=== PATIENT | female | born 1965 | race Caucasian/White ===

== ENCOUNTER 2017-11-22 23:05 | Inpatient (IN) | payer BC ==
[2017-11-22] MEDS ORDERED: Lactated Ringers 1,000 ML IV ONE (23:32)
[2017-11-22] MEDS ORDERED: Metoclopramide 10 MG/2 ML SDV IVPUSH ONE (23:32)
[2017-11-22] MEDS ORDERED: HYDROmorphone 0.5 MG/0.5 ML Syringe IVPUSH ONE (23:32)
--- NOTE | 2017-11-22 23:39 | EDM.PDOC ---
ED HPI GENERAL MEDICAL PROBLEM - General Chief Complaint: Abdominal Pain Stated Complaint: ABD PAIN Time Seen by Provider: 11/22/17 23:20 Source of Information: Reports: Patient, RN History Limitations: Reports: No Limitations - History of Present Illness INITIAL COMMENTS - FREE TEXT/NARRATIVE: 52 yo female presents with crampy abdominal pain and vomiting that began early this evening. No fever. No hematemesis. No diarrhea. Pain started RLQ and now is more central. Pain not worse with coughing. Here with . Last BM was this afternoon. Has a hx of constipation. No hx of any abdominal surgeries. Hx of cervical CA. Has not ever had colonoscopy. Has a hx of anemia attributed to menorrhagia(last menses duration was just over a month). Onset: Today Onset Date: 11/22/17 Onset Time: 19:00 Duration: Hour(s):, Recurring Location: Reports: Abdomen Quality: Reports: Other (crampy) Severity: Moderate Improves with: Reports: None Worsens with: Reports: None Context: Reports: Other (unknown) Associated Symptoms: Reports: Nausea/Vomiting. 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) Other OB/BYN History: cervix cancer - Infectious Disease History Infectious Disease History: Reports: Chicken Pox - Past Surgical History Oncologic Surgical History: Reports: Other (See Below) Other Oncologic Surgeries/Procedures: Removed the cancer from the cervix Social & Family History - Tobacco Use Smoking Status *Q: Current Every Day Smoker Years of Tobacco use: 30 Packs/Tins Daily: 1 Second Hand Smoke Exposure: Yes - Caffeine Use Caffeine Use: Reports: Coffee - Recreational Drug Use Recreational Drug Use: No ED ROS GENERAL - Review of Systems Review Of Systems: See Below Constitutional: Reports: No Symptoms HEENT: Reports: No Symptoms Respiratory: Reports: No Symptoms Cardiovascular: Reports: No Symptoms Endocrine: Reports: No Symptoms GI/Abdominal: Reports: Abdominal Pain, Nausea, Vomiting. Denies: Black Stool, Bloody Stool, Constipation, Diarrhea, Decreased Appetite, Distension, Flatus, Hematemesis, Hematochezia, Melena : Reports: No Symptoms Musculoskeletal: Reports: No Symptoms Skin: Reports: No Symptoms Neurological: Reports: No Symptoms Psychiatric: Reports: No Symptoms ED EXAM, GI/ABD - Physical Exam Exam: See Below Exam Limited By: No Limitations General Appearance: Alert, WD/WN, Mild Distress Eyes: Bilateral: Normal Appearance Ears: Normal External Exam, Normal Canal, Hearing Grossly Normal Nose: Normal Inspection, Normal Mucosa, No Blood Throat/Mouth: Normal Inspection, Normal Lips, Normal Oropharynx, Normal Voice, No Airway Compromise Head: Atraumatic, Normocephalic Neck: Normal Inspection, Supple, Non-Tender Respiratory/Chest: No Respiratory Distress, Lungs Clear, Normal Breath Sounds, No Accessory Muscle Use Cardiovascular: Regular Rate, Rhythm, No Edema GI/Abdominal Exam: Soft, Distended (mild distention ), Tender (diffusely), Abnormal Bowel Sounds (increased) Back Exam: Normal Inspection. No: CVA Tenderness (R), CVA Tenderness (L) Extremities: Normal Inspection, Normal Range of Motion, Non-Tender, No Pedal Edema Neurological: Alert, Oriented, CN II-XII Intact, Normal Cognition, No Motor/ Sensory Deficits Psychiatric: Normal Affect, Normal Mood Skin Exam: Warm, Dry, Intact, Normal Color, No Rash Lymphatic: No Adenopathy Course - Vital Signs Last Recorded V/S: Last Vital Signs Temp 35.8 C 11/22/17 23:17 Pulse 55 L 11/22/17 23:17 Resp 14 11/22/17 23:17 BP 127/42 L 11/22/17 23:17 Pulse Ox 100 11/22/17 23:17 - Orders/Labs/Meds Orders: Active Orders 24 hr Category Date Time Status Abdomen 1V Upright [CR] Stat Exams 11/22/17 23:33 Taken Abdomen Pelvis w Cont [CT] Stat Exams 11/23/17 00:07 Taken Labs: Laboratory Tests 11/22/17 11/22/17 Range/Units 23:41 23:41 WBC 12.3 H (4.5-11.0) K/uL RBC 3.91 (3.30-5.50) M/uL Hgb 9.3 L D (12.0-15.0) g/dL Hct 30.1 L (36.0-48.0) % MCV 77 L (80-98) fL MCH 24 L (27-31) pg MCHC 31 L (32-36) % Plt Count 453 H (150-400) K/uL Sodium 134 L (140-148) mmol/L Potassium 3.4 L (3.6-5.2) mmol/L Chloride 98 L (100-108) mmol/L Carbon Dioxide 24 (21-32) mmol/L Anion Gap 15.4 H (5.0-14.0) mmol/L BUN 17 (7-18) mg/dL Creatinine 0.7 (0.6-1.0) mg/dL Est Cr Clr Drug Dosing 91.75 mL/min Estimated GFR (MDRD) > 60 (>60) Glucose 150 H (74-106) mg/dL Calcium 8.8 (8.5-10.1) mg/dL Meds: Medications Discontinued Medications Generic Name Dose Route Start Last Admin Trade Name Freq PRN Reason Stop Dose Admin Hydromorphone HCl 0.5 mg 11/22/17 23:32 11/22/17 23:40 Dilaudid IVPUSH 11/22/17 23:33 0.5 mg ONETIME ONE Administration Lactated Ringer's 1,000 mls @ 1,000 mls/hr 11/22/17 23:32 11/22/17 23:44 Ringers, Lactated IV 11/23/17 00:31 1,000 mls/hr BOLUS ONE Administration Sodium Chloride 70 mls @ 3 mls/sec 11/23/17 00:14 11/23/17 00:25 Normal Saline IV 11/23/17 00:15 3 mls/sec ASDIRECTED STA Administration Iopamidol 96 ml 11/23/17 00:14 11/23/17 00:25 Isovue-300 (61%) IV 11/23/17 00:15 100 ml . DIRECTED STA Administration Metoclopramide HCl 10 mg 11/22/17 23:32 11/22/17 23:39 Reglan IVPUSH 11/22/17 23:33 10 mg ONETIME ONE Administration - Radiology Interpretation Free Text/Narrative:: Upright abdominal K-mqs-mylqaxemz bowel with air-fluid levels, increased stool as well. CT abd/pelvis-Cecal volvulus, large stool Uterus with endometrial prominance with heterogeneity. CT Results Date: 11/23/17 CT Results Time: 01:15 Departure - Departure Time of Disposition: :25 Disposition: Admitted As Inpatient 68 Condition: Fair Clinical Impression: Cecal volvulus Constipation Qualifiers: Constipation type: unspecified constipation type Qualified Code(s): K59.00 - Constipation, unspecified - Discharge Information Referrals: Faheem Fernando MD [Primary Care Provider] - Forms: ED Department Discharge - My Orders Last 24 Hours: My Active Orders 11/22/17 23:33 Abdomen 1V Upright [CR] Stat 11/23/17 00:07 Abdomen Pelvis w Cont [CT] Stat - Assessment/Plan Last 24 Hours: My Active Orders 11/22/17 23:33 Abdomen 1V Upright [CR] Stat 11/23/17 00:07 Abdomen Pelvis w Cont [CT] Stat
[2017-11-23] MEDS ORDERED: Iopamidol 612 MG/ML 100 ML Bottle IV STA (00:14)
[2017-11-23] MEDS: Lactated Ringers 1,000 ML IV SCH ×2 (01:41→09:38)
--- NOTE | 2017-11-23 02:01 | PCM.HP ---
H&P History of Present Illness - General Admit Problem/Dx: Admission Diagnosis/Problem Admission Diagnosis/Problem Cecal volvulus Source of Information: Patient, Family ( Meagan) History Limitations: Reports: No Limitations - History of Present Illness Initial Comments - Free Text/Narative: 52 yo female presents with crampy abdominal pain and vomiting that began early this evening. No fever. No hematemesis. No diarrhea. Pain started RLQ and now is more central. Pain not worse with coughing. Here with . Last BM was this afternoon. Has a hx of constipation. No hx of any abdominal surgeries. Hx of cervical CA. Has not ever had colonoscopy. Has a hx of anemia attributed to menorrhagia(last menses duration was just over a month). Onset: Today Upright abdominal Y-[id number] bowel with air-fluid levels, increased stool as well. CT abd/pelvis-Cecal volvulus, large stool Uterus with endometrial prominance with heterogeneity. CT Results Date: 11/23/17 CT Results Time: 01:15, consulted with Dr. Toni Peterson, plan surgery in am, dilaudid COMB[employer] INFORMATION CENTER OFFICER, anti-emetics, IV fluids, NPO Onset of Symptoms: Reports: Sudden Symptom Onset Date: 11/22/17 Symptom Onset Time: 19:00 Duration of Symptoms: Reports: Getting Worse Location: Reports: Abdomen Quality: Reports: Other (acute nausea, vomiting and abdominal pain) Severity: Severe Improves with: Reports: None Worsens with: Reports: None Associated Symptoms: Reports: Fever/Chills, Loss of Appetite, Nausea/Vomiting Abdomen Pain Score (Numeric/FACES): 8 - Related Data Allergies/Adverse Reactions: Allergies Allergy/AdvReac Type Severity Reaction Status Date / Time No Known Allergies Allergy Verified 11/22/17 23:20 Home Medications: Home Meds NK [No Known Home Meds] 07/24/15 [History] 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) Other OB/BYN History: cervix cancer - Infectious Disease History Infectious Disease History: Reports: Chicken Pox - Past Surgical History Oncologic Surgical History: Reports: Other (See Below) Other Oncologic Surgeries/Procedures: Removed the cancer from the cervix Social & Family History - Tobacco Use Smoking Status *Q: Current Every Day Smoker Years of Tobacco use: 30 Packs/Tins Daily: 1 Second Hand Smoke Exposure: Yes - Caffeine Use Caffeine Use: Reports: Coffee - Recreational Drug Use Recreational Drug Use: No - Living Situation & Occupation Living situation: Reports: Occupation: Employed (lives with Meagan in [place], [place]. blended family of 9 children age 21 yr to 34 yrs. [employer] business.) H&P Review of Systems - Review of Systems: Review Of Systems: See Below General: Reports: Fever, Chills, Malaise, Decreased Appetite HEENT: Reports: Sore Throat Pulmonary: Reports: Other (tobacco use one and half packs per day) Cardiovascular: Reports: No Symptoms Gastrointestinal: Reports: Abdominal Pain, Distension, Nausea, Vomiting, Other ( bm this evening "normal") Genitourinary: Reports: No Symptoms Musculoskeletal: Reports: No Symptoms Skin: Reports: No Symptoms Psychiatric: Reports: No Symptoms Neurological: Reports: No Symptoms Hematologic/Lymphatic: Reports: Anemia (hx of prolonged heavy menses) Immunologic: Reports: No Symptoms Exam - Exam Exam: See Below - Vital Signs Vital Signs: Last Vital Signs Temp 35.8 C 11/22/17 23:17 Pulse 55 L 11/22/17 23:17 Resp 14 11/22/17 23:17 BP 127/42 L 11/22/17 23:17 Pulse Ox 100 11/22/17 23:17 Weight: 64.41 kg - Exam Quality Assessment: DVT Prophylaxis General: Alert, Oriented, Sedated HEENT: PERRLA, Hearing Intact, Mucosa Moist & [place], Nares Patent, Normal Nasal Septum, Posterior Pharynx Clear, Conjunctiva Clear, EOMI, EACs Clear, TMs Clear Neck: Supple, Trachea Midline, 2 Lungs: Clear to Auscultation, Normal Respiratory Effort Cardiovascular: Regular Rate, Regular Rhythm, Normal S1, Normal S2 GI/Abdominal Exam: Distended (marked abdominal distension, generalized pain), Abnormal Bowel Sounds (Female) Exam: Deferred Rectal (Female) Exam: Deferred Back Exam: Normal Inspection, Full Range of Motion Extremities: Normal Inspection, Normal Range of Motion, No Pedal Edema, Normal Capillary Refill Skin: Warm, Dry, Intact Neurological: Cranial Nerves Intact, Reflexes Equal Bilateral Neuro Extensive - Mental Status: Alert, Oriented x3, Normal Mood/Affect, Normal Cognition Neuro Extensive - Motor, Sensory, Reflexes: CN II-XII Intact, Normal Gait, Normal Reflexes Psychiatric: Alert, Normal Affect, Normal Mood - Patient Data Lab Results Last 24 hrs: Laboratory Results - last 24 hr 11/22/17 11/22/17 Range/Units 23:41 23:41 WBC 12.3 H (4.5-11.0) K/uL RBC 3.91 (3.30-5.50) M/uL Hgb 9.3 L D (12.0-15.0) g/dL Hct 30.1 L (36.0-48.0) % MCV 77 L (80-98) fL MCH 24 L (27-31) pg MCHC 31 L (32-36) % Plt Count 453 H (150-400) K/uL Sodium 134 L (140-148) mmol/L Potassium 3.4 L (3.6-5.2) mmol/L Chloride 98 L (100-108) mmol/L Carbon Dioxide 24 (21-32) mmol/L Anion Gap 15.4 H (5.0-14.0) mmol/L BUN 17 (7-18) mg/dL Creatinine 0.7 (0.6-1.0) mg/dL Est Cr Clr Drug Dosing 91.75 mL/min Estimated GFR (MDRD) > 60 (>60) Glucose 150 H (74-106) mg/dL Calcium 8.8 (8.5-10.1) mg/dL Result Diagrams: 11/22/17 23:41 11/22/17 23:41 *Q Meaningful Use (ADM) - VTE *Q VTE Criteria *Q: - Stroke *Q Stroke Criteria *Q: - AMI *Q AMI Criteria *Q: - Problem List (1) Cecal volvulus SNOMED Code(s): 050836433 ICD Code: K56.2 - VOLVULUS Status: Acute Priority: High Current Visit: Yes (2) Abdominal pain SNOMED Code(s): 42630875 ICD Code: R10.9 - UNSPECIFIED ABDOMINAL PAIN Status: Acute Priority: High Current Visit: Yes Problem List Initiated/Reviewed/Updated: Yes Orders Last 24hrs: Active Orders 24 hr Category Date Time Status Patient Status Manage Transfer [TRANSFER] Routine ADT 11/23/17 01:49 Ordered Abdomen 1V Upright [CR] Stat Exams 11/22/17 23:33 Taken Abdomen Pelvis w Cont [CT] Stat Exams 11/23/17 00:07 Taken Lactated Ringers [Ringers, Lactated] 1,000 ml Med 12/24/17 01:45 Active IV ASDIRECTED Resuscitation Status Routine Resus Stat 11/23/17 01:50 Ordered Medication Orders Lactated Ringer's (Ringers, Lactated) 1,000 mls @ 125 mls/hr IV ASDIRECTED [facility] Last Admin: 11/23/17 01:41 Dose: 125 mls/hr Assessment/Plan Comment:: ssessment/Plan Comment:: Assessment and plan - history of present illness 52 yo female presents with crampy abdominal pain and vomiting that began early this evening. No fever. No hematemesis. No diarrhea. Pain started RLQ and now is more central. Pain not worse with coughing. Here with . Last BM was this afternoon. Has a hx of constipation. No hx of any abdominal surgeries. Hx of cervical CA. Has not ever had colonoscopy. Has a hx of anemia attributed to menorrhagia(last menses duration was just over a month). Onset: Today, nausea and vomiting at 7pm Upright abdominal P-kpy-ixnntympn bowel with air-fluid levels, increased stool as well. CT abd/pelvis-Cecal volvulus, large stool Uterus with endometrial prominance with heterogeneity. CT Results Date: 11/23/17 CT Results Time: 01:15, consulted with Dr. 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, anti-emetics , IV fluids, NPO Assessment and plan - Cecal volvulus -Admit to Med-Surg -surgical intervention in am -NPO -Zofran 4 mg IV every 4 hr prn -IV Dilaudid COMBAT INFORMATION CENTER OFFICER -IV fluids; LR at 125ml/hr Maintenance issues - - DVT prophylaxis - SCD - GI prophylaxis - PPI Protonix 40mg IV bid - Nutrition - nothing by mouth - Mckeon catheter - not indicated -Tobacco; Nicotine patch 21mg -consult Spiritual CODE STATUS - FULL Admission justification - This patient will be admitted for inpatient services and is medically appropriate meeting medical necessity for inpatient admission as outlined in my documentation. I reasonably expect the patient will require inpatient services that span a period time over 2 midnights. I reasonably expect this patient to be discharged or transferred within 96 hours [facility]. Disposition - anticipate discharge to home after the hospital stay Primary care physician - Dr. Fernando Hospitalist: Nate Macario M.D. Surgeon; Toni Peterson M.D. Please call Dionicio Rhodes at [phone] with Surgery time.
[2017-11-23] MEDS ORDERED: LORazepam 2 MG/ML MDV IV PRN (02:20)
[2017-11-23] MEDS ORDERED: Naloxone 0.4 MG/ML SDV IVPUSH PRN ×2 (02:20→07:30)
[2017-11-23] MEDS ORDERED: HYDROmorphone/Normal Saline 15 MG/30 ML PCA IV PRN (02:20)
[2017-11-23] MEDS ORDERED: Albuterol 0.083% 2.5 MG/3 ML Neb Soln NEB PRN (02:20)
[2017-11-23] MEDS ORDERED: Pantoprazole 40 MG Vial IV SCH ×2 (02:30→16:30)
[2017-11-23] MEDS ORDERED: Nicotine 21 MG/24 Hr Patch TRDERM ONE ×2 (02:30→20:15)
[2017-11-23] MEDS: Ondansetron 4 MG/2 ML SDV IV PRN ×2 (08:05→17:26)
[2017-11-23] MEDS ORDERED: Propofol 200 MG/20 ML SDV ONE (08:19)
[2017-11-23] MEDS ORDERED: Ondansetron 4 MG/2 ML SDV ONE (08:19)
[2017-11-23] MEDS ORDERED: Dexamethasone 4 MG/ML SDV ONE (08:19)
[2017-11-23] MEDS ORDERED: fentaNYL 100 MCG/2 ML SDV ONE (08:19)
[2017-11-23] MEDS ORDERED: Succinylcholine 200 MG/10 ML MDV ONE (08:19)
[2017-11-23] MEDS ORDERED: Glycopyrrolate 0.2 MG/ML 5 ML MDV ONE (08:19)
[2017-11-23] MEDS ORDERED: Rocuronium 50 MG/5 ML Vial ONE (08:19)
[2017-11-23] MEDS ORDERED: Neostigmine Methylsulfate 1 MG/ML 5 ML Syringe ONE (08:19)
[2017-11-23] MEDS ORDERED: Sodium Chloride 0.9% 10 ML ONE (08:20)
[2017-11-23] MEDS ORDERED: cefOXitin 2 GM in Sodium Chloride 0.9% 50 ML IV ONE (09:00)
[2017-11-23] MEDS ORDERED: Meropenem 500 MG SDV ONE (10:27)
[2017-11-23] MEDS ORDERED: Lactated Ringers 1,000 ML ONE (11:08)
[2017-11-23] MEDS ORDERED: Naloxone 0.4 MG/ML SDV IV PRN (13:05)
[2017-11-23] MEDS ORDERED: diphenhydrAMINE 50 MG/ML SDV IVPUSH PRN (13:05)
[2017-11-23] MEDS ORDERED: Meperidine PF 75 MG/ML Syringe IM PRN (13:09)
[2017-11-23] MEDS: fentaNYL 2,500 MCG in Sodium Chloride 0.9% 200 ML EPIDUR SCH (14:25)
[2017-11-23] MEDS: Dextrose 5%-Lactated Ringers 1,000 ML IV SCH ×2 (15:36→21:10)
[2017-11-23] MEDS: cefOXitin 2 GM in Sodium Chloride 0.9% 50 ML IV SCH ×2 (15:39→21:26)
[2017-11-23] MEDS ORDERED: Benzocaine/Cetylpyridinium/Menthol Lozenge MUCMEM PRN (19:01)
[2017-11-23] MEDS: Pantoprazole 40 MG Vial IV SCH (20:21)
[2017-11-23] MEDS: Scopolamine 1.5 MG Transdermal Patch TOP SCH (21:26)
[2017-11-24] MEDS: Dextrose 5%-Lactated Ringers 1,000 ML IV SCH ×2 (02:46→08:07)
[2017-11-24] MEDS: cefOXitin 2 GM in Sodium Chloride 0.9% 50 ML IV SCH (04:56)
[2017-11-24] MEDS: fentaNYL 2,500 MCG in Sodium Chloride 0.9% 200 ML EPIDUR SCH (05:47)
[2017-11-24] MEDS ORDERED: Nicotine 21 MG/24 Hr Patch TRDERM SCH (09:00)
[2017-11-24] MEDS: Ondansetron 4 MG/2 ML SDV IV PRN (09:26)
[2017-11-24] MEDS: Nicotine 21 MG/24 Hr Patch TRDERM SCH (09:31)
[2017-11-24] MEDS: VERIFY SCOP PATCH TOP SCH (09:32)
[2017-11-24] MEDS: Magnesium Sulfate/Water 2 GM in Premix Bag 1 BAG IV SCH ×3 (09:34→22:20)
--- NOTE | 2017-11-24 16:52 | PN ---
DATE OF SERVICE: 11/24/2017 The patient has been afebrile with stable vital signs. Respiratory status is stable, but she is not using the incentive spirometer to effect. We will have RT assist with that today as well. Otherwise, urine output has been satisfactory, back down the IV rate. The epidural catheter appears to be working satisfactorily as far as the pain goes. We will probably leave that in an extra day, most likely getting that out on Friday. Our plan will be to proceed with delayed primary closure tomorrow along with the TAP block at that time to augment her abdominal pain control. Magnesium is quite low at 1-1.4. We will supplement that over the next 72 hours. Hemoglobin is also low at 8.3. She probably has some degree of chronic anemia. We will recheck that again. We will type and cross and ferritin level in the morning and the plan is to proceed with the delayed primary closure early tomorrow. Toni Peterson MD /[id number]
[2017-11-24] MEDS: Pantoprazole 40 MG Vial IV SCH (22:19)
[2017-11-25] MEDS: fentaNYL 2,500 MCG in Sodium Chloride 0.9% 200 ML EPIDUR SCH ×2 (00:30→21:48)
[2017-11-25] MEDS: Dextrose 5%-Lactated Ringers 1,000 ML IV SCH ×2 (02:13→08:47)
[2017-11-25] MEDS: Magnesium Sulfate/Water 2 GM in Premix Bag 1 BAG IV SCH ×4 (04:03→21:47)
[2017-11-25] MEDS ORDERED: Lidocaine 0.5% 50 ML SDV ONE (06:56)
[2017-11-25] MEDS ORDERED: Meropenem 500 MG SDV ONE (06:56)
[2017-11-25] MEDS ORDERED: Bupivacaine 0.5%/EPINEPHrine 1:200,000 50 ML MDV ONE (06:57)
[2017-11-25] MEDS ORDERED: Lidocaine 1% 50 ML MDV ONE (06:57)
[2017-11-25] MEDS ORDERED: Ropivacaine 32 ML, Dexamethasone 8 MG, EPINEPHrine 0.4 MG, Sodium Chloride 0.9% 45.6 ML NERVRT SCH ×4 (07:15)
[2017-11-25] MEDS ORDERED: Propofol 200 MG/20 ML SDV ONE (07:37)
--- NOTE | 2017-11-25 07:53 | PN ---
DATE OF SERVICE: 11/25/2017 SUBJECTIVE: Jovany is n.p.o. for delayed primary closure, this morning, hemoglobin is 8.3, potassium 3.4, phosphorus is 2.2. She has no questions or concerns. OBJECTIVE: GENERAL: Jovany Palomares is a 52-year-old female. She is alert and orientated. VITAL SIGNS: Her TPR was last checked at 2:05 a.m. and was 100, 78, 16. Blood pressure 118/65. HEENT: Negative. NECK: Supple. HEART: Regular rate and rhythm. LUNGS: Clear. ABDOMEN: Dressings dry and intact. Abdominal binders on. KHURRAM drain 1 and 2 have put out 370 and 280 respectively of a light pink serosanguineous drainage. EXTREMITIES: Without peripheral edema. ASSESSMENT: Right colon resection. Date is 11/23/2017. PLAN: Orders to be written after delayed primary closure and heparin lock. Clary Jimenez PA-C /[id number]
--- NOTE | 2017-11-25 09:18 | CR ---
Gaseous distention of bowel which may be colon and relate to obstruction. Small bowel loops are promi nent. Refer to CT report.
[2017-11-25] MEDS: Nicotine 21 MG/24 Hr Patch TRDERM SCH (09:27)
[2017-11-25] MEDS: VERIFY SCOP PATCH TOP SCH (09:28)
[2017-11-25] MEDS: Ibuprofen 600 MG Tab PO SCH ×3 (09:29→21:47)
[2017-11-25] MEDS: Acetaminophen 500 MG Tab PO SCH ×3 (09:29→21:47)
[2017-11-25] MEDS: Bisacodyl 5 MG Tab PO SCH ×2 (09:29→20:21)
[2017-11-25] MEDS: Metoclopramide 10 MG/2 ML SDV IVPUSH SCH ×3 (09:30→21:47)
[2017-11-25] MEDS: Iron Sucrose Complex 500 MG in Sodium Chloride 0.9% 250 ML IV SCH (10:30)
[2017-11-25] MEDS: Potassium Phosphates 20 MMOLE in Sodium Chloride 0.9% 250 ML IV SCH ×3 (12:21→20:18)
[2017-11-25] MEDS: Ondansetron 4 MG/2 ML SDV IV PRN (18:51)
[2017-11-25] MEDS: Pantoprazole 40 MG Vial IV SCH (20:21)
[2017-11-26] MEDS: Ondansetron 4 MG/2 ML SDV IV PRN (01:04)
[2017-11-26] MEDS: Acetaminophen 500 MG Tab PO SCH ×4 (03:16→21:50)
[2017-11-26] MEDS: Ibuprofen 600 MG Tab PO SCH ×4 (03:16→21:50)
[2017-11-26] MEDS: Metoclopramide 10 MG/2 ML SDV IVPUSH SCH ×4 (03:17→21:50)
[2017-11-26] MEDS: Magnesium Sulfate/Water 2 GM in Premix Bag 1 BAG IV SCH ×4 (03:17→21:51)
[2017-11-26] MEDS: Dextrose 5%-Lactated Ringers 1,000 ML IV SCH ×2 (05:17→15:51)
[2017-11-26] MEDS ORDERED: Naloxone 0.4 MG/ML SDV IVPUSH PRN (08:58)
[2017-11-26] MEDS ORDERED: diphenhydrAMINE 50 MG/ML SDV IVPUSH PRN (08:59)
[2017-11-26] MEDS ORDERED: Naloxone 0.4 MG/ML SDV IV PRN (08:59)
[2017-11-26] MEDS ORDERED: fentaNYL 2,500 MCG in Sodium Chloride 0.9% 200 ML EPIDUR SCH (09:00)
--- NOTE | 2017-11-26 09:24 | PN ---
DATE OF SERVICE: 11/26/2017 HISTORY OF PRESENT ILLNESS: Jovany had a delayed primary closure yesterday. She had one which she thought to be bloody BM, then had a normal BM after that. It was quite loose, but brown in color. She had 2 emesis, the 1st one 400 mL and the 2nd one 500 mL. She felt better immediately after the emesis. Has been on ice chips. Pain is controlled. Continues to have epidural. REVIEW OF SYSTEMS: Remainder of review of systems, negative for any pertinent positives and negatives. OBJECTIVE: GENERAL: Jovany Palomares is a 52-year-old female. VITAL SIGNS: TPR is 99.6, 78, 14, blood pressure is 104/54. HEENT: Negative. NECK: Supple. HEART: Regular rate and rhythm. LUNGS: Clear. ABDOMEN: Dressing is dry and intact. Abdominal binder is on. KHURRAM drains have put out 625. EXTREMITIES: SCDs are on and there is no peripheral edema. ASSESSMENT: 1. Right colectomy 11/23/2017. 2. Delayed primary closure 11/25/2017. PLAN: 1. Check stool for C diff. 2. Check abdominal flat and upright film in the a.m., 11/27/2017 at 0400 hours. 3. Sips of clear liquids, advance slowly as tolerated. 4. We will evaluate p.r.n. or in the a.m. Clary Jimenez PA-C /[id number]
[2017-11-26] MEDS: Nicotine 21 MG/24 Hr Patch TRDERM SCH (09:25)
[2017-11-26] MEDS: Bisacodyl 5 MG Tab PO SCH ×3 (09:25→21:52)
[2017-11-26] MEDS: VERIFY SCOP PATCH TOP SCH (09:27)
[2017-11-26] MEDS: Iron Sucrose Complex 500 MG in Sodium Chloride 0.9% 250 ML IV SCH (11:19)
[2017-11-26] MEDS: Vancomycin 250 MG/5 ML ML Oral Solution PO SCH ×2 (17:23→23:36)
[2017-11-26] MEDS: Pantoprazole 40 MG Vial IV SCH (21:50)
[2017-11-26] MEDS: Scopolamine 1.5 MG Transdermal Patch TOP SCH (21:51)
[2017-11-27] MEDS: Magnesium Sulfate/Water 2 GM in Premix Bag 1 BAG IV SCH (03:33)
[2017-11-27] MEDS: Metoclopramide 10 MG/2 ML SDV IVPUSH SCH ×4 (03:55→22:57)
[2017-11-27] MEDS: Acetaminophen 500 MG Tab PO SCH ×3 (03:55→16:27)
[2017-11-27] MEDS: Ibuprofen 600 MG Tab PO SCH ×3 (03:55→16:24)
[2017-11-27] MEDS: Dextrose 5%-Lactated Ringers 1,000 ML IV SCH ×3 (03:57→23:11)
[2017-11-27] MEDS: Vancomycin 250 MG/5 ML ML Oral Solution PO SCH ×3 (07:25→17:21)
--- NOTE | 2017-11-27 08:25 | PN ---
DATE OF SERVICE: 11/27/2017 SUBJECTIVE: She has had no further vomiting. Her pain is controlled. She did test positive for Clostridium difficile, continues to have some rectal bleeding, had 3 bowel movements yesterday. Oral intake to 540 and urine output 775. KHURRAM drains have put out 165 and 65 respectively. Pain is controlled. REVIEW OF SYSTEMS: Remainder of review of systems negative for any pertinent positives and negatives. OBJECTIVE: GENERAL: Jovany Palomares is a 52-year-old female. She is alert and orientated. VITAL SIGNS: Stable. HEENT: Negative. NECK: Supple. HEART: Regular rate and rhythm. LUNGS: Clear. ABDOMEN: Dressings dry and intact. Abdominal binder is on. KHURRAM drains x2 intact. EXTREMITIES: Without peripheral edema. ASSESSMENT: 1. Right colectomy, 11/23/2017. 2. Delayed primary closure, 11/25/2017. PLAN: 1. Discontinue Mckeon catheter. 2. Regular diet. 3. Good pulmonary toilet. 4. We will evaluate p.r.n. or in a.m. Clary Jimenez PA-C /[id number]
[2017-11-27] MEDS: Ondansetron 4 MG/2 ML SDV IV PRN ×3 (08:44→22:58)
[2017-11-27] MEDS: VERIFY SCOP PATCH TOP SCH (09:47)
[2017-11-27] MEDS: Nicotine 21 MG/24 Hr Patch TRDERM SCH (09:53)
--- NOTE | 2017-11-27 10:16 | CR ---
Abdomen 2V AP Flat Upright HISTORY: post operative ileus FINDINGS: There are multiple dilated small bowel loops with air-fluid levels. Dilated loops of colon are not seen. Findings may represent postoperative ileus. Partial small bowel obstruction is not excl uded. No mass or organomegaly can be seen. Skin jeff are noted midline over the lower abdomen and pelvis. There is mild probable linear atelectasis right lung base. IMPRESSION: Probable postoperative ileus. Partial small bowel obstruction is not entirely excluded. C ontinued follow-up is recommended. Midline skin jeff are noted. Probable mild atelectasis is seen at the right lung base.
[2017-11-27] MEDS: Bisacodyl 5 MG Tab PO SCH (10:29)
[2017-11-27] MEDS ORDERED: Pantoprazole 40 MG Tab.CR PO SCH (16:30)
[2017-11-27] MEDS: LORazepam 2 MG/ML MDV IVPUSH PRN ×2 (17:33→19:52)
[2017-11-27] MEDS ORDERED: metroNIDAZOLE/Normal Saline 500 MG in Premix Bag 1 BAG IV SCH (18:00)
[2017-11-27] MEDS ORDERED: HYDROmorphone/Normal Saline 15 MG/30 ML PCA IV SCH (21:15)
[2017-11-27] MEDS ORDERED: Vancomycin 250 MG/5 ML ML Oral Solution PO SCH (22:00)
[2017-11-28] MEDS: Metoclopramide 10 MG/2 ML SDV IVPUSH SCH ×4 (03:12→22:15)
[2017-11-28] MEDS: Ondansetron 4 MG/2 ML SDV IV PRN ×2 (03:21→18:13)
[2017-11-28] MEDS: metroNIDAZOLE/Normal Saline 500 MG in Premix Bag 1 BAG IV SCH ×6 (05:36→23:52)
--- NOTE | 2017-11-28 08:51 | CR ---
2 view abdomen Comparison: Previous day. There has been interval placement of a nasogastric tube. There continues to be multiple dilated loops of small bowel in the central aspect of the abdomen. No significant distention of the colon is seen. There is no free air. Impression: 1. Continued dilated loops of small bowel. The finding may reflect a small bowel obstruction versus i leus. 2. Interval placement of nasogastric tube.
[2017-11-28] MEDS ORDERED: Vancomycin 250 MG/5 ML ML Oral Solution SCH (09:00)
[2017-11-28] MEDS: Pantoprazole 40 MG Vial IVPUSH SCH (09:36)
[2017-11-28] MEDS: VANCOMYCIN RECTAL SCH ×4 (09:37→22:16)
[2017-11-28] MEDS: SODIUM CHLORIDE 0.9% RECTAL SCH ×4 (09:37→22:16)
[2017-11-28] MEDS: VERIFY SCOP PATCH TOP SCH (09:39)
[2017-11-28] MEDS: Nicotine 21 MG/24 Hr Patch TRDERM SCH (09:39)
[2017-11-28] MEDS: Erythromycin Ethylsuccinate Susp 400 MG/5 ML 100 ML Bottle PO SCH ×3 (09:40→20:49)
--- NOTE | 2017-11-28 10:23 | PN ---
DATE OF SERVICE: 11/28/2017 SUBJECTIVE: Jovany developed a postop ileus. An NG was placed. She had 150 out. She is less nauseated. She had urinary retention. Mckeon catheter was put back in, and she had 600 of urinary retention. She continues to have loose stools with a positive C. diff. Bleeding is coming more from rectal irritation and not from the actual colon, per nursing observation. Oral intake was 440, emesis 500 mL. Mckeon catheter output was 550, with 600 retention. KHURRAM drain, the round drain, put out 5. Stools on the was 3. REVIEW OF SYSTEMS: Remainder of review of systems negative for any pertinent positives and negatives. OBJECTIVE: GENERAL: Jovany Palomares is a 52-year-old female. VITAL SIGNS: TPR is 100.5, 79, 18, and blood pressure 123/58. HEENT: Negative. NECK: Supple. HEART: Regular rate and rhythm. LUNGS: Clear. ABDOMEN: Dressings dry and intact. Abdominal binder is on. EXTREMITIES: SCDs are on. NG is in place as well as Mckeon. ASSESSMENT: 1. Postoperative ileus. 2. Right colectomy, 11/23/2017. 3. Delayed primary closure, 11/25/2017. PLAN: 1. Vancomycin 200 mg in 250 mL saline enema b.i.d. 2. Erythromycin 250 mg liquid through NG q.i.d. with 10 mL water flush after medication. 3. Good pulmonary toilet. 4. We will evaluate p.r.n. or in a.m. Clary Jimenez PA-C /[id number]
[2017-11-28] MEDS: Dextrose 5%-Lactated Ringers 1,000 ML IV SCH ×2 (10:27→22:17)
[2017-11-28] MEDS: LORazepam 2 MG/ML MDV IVPUSH PRN (20:47)
[2017-11-28] MEDS ORDERED: Phenol/Sodium Phenolate Mouthwash 180 ML Bottle PO PRN (21:37)
[2017-11-29] MEDS: Erythromycin Ethylsuccinate Susp 400 MG/5 ML 100 ML Bottle PO SCH ×4 (01:44→22:19)
[2017-11-29] MEDS: Metoclopramide 10 MG/2 ML SDV IVPUSH SCH ×4 (05:00→22:16)
[2017-11-29] MEDS: metroNIDAZOLE/Normal Saline 500 MG in Premix Bag 1 BAG IV SCH ×3 (05:01→17:36)
[2017-11-29] MEDS: Nicotine 21 MG/24 Hr Patch TRDERM SCH (09:03)
[2017-11-29] MEDS: VERIFY SCOP PATCH TOP SCH (09:04)
[2017-11-29] MEDS: Pantoprazole 40 MG Vial IVPUSH SCH (09:04)
[2017-11-29] MEDS: SODIUM CHLORIDE 0.9% RECTAL SCH ×4 (09:45→22:37)
[2017-11-29] MEDS: VANCOMYCIN RECTAL SCH ×4 (09:45→22:37)
[2017-11-29] MEDS: Dextrose 5%-Lactated Ringers 1,000 ML IV SCH (11:50)
[2017-11-29] MEDS: Meperidine 300 MG/30 ML PCA Vial IV PRN (20:35)
[2017-11-29] MEDS: Scopolamine 1.5 MG Transdermal Patch TOP SCH (22:18)
[2017-11-30] MEDS: metroNIDAZOLE/Normal Saline 500 MG in Premix Bag 1 BAG IV SCH ×4 (00:37→18:13)
[2017-11-30] MEDS ORDERED: Iohexol 300 MG/ML 30 ML Bottle ONE (03:00)
[2017-11-30] MEDS: LORazepam 2 MG/ML MDV IVPUSH PRN ×3 (03:00→19:26)
[2017-11-30] MEDS: Erythromycin Ethylsuccinate Susp 400 MG/5 ML 100 ML Bottle PO SCH ×2 (03:05→16:28)
[2017-11-30] MEDS: Dextrose 5%-Lactated Ringers 1,000 ML IV SCH ×2 (03:17→15:49)
[2017-11-30] MEDS: Metoclopramide 10 MG/2 ML SDV IVPUSH SCH ×4 (03:29→21:31)
[2017-11-30] MEDS: Ondansetron 4 MG/2 ML SDV IV PRN ×2 (03:58→12:11)
[2017-11-30] MEDS ORDERED: Iopamidol 612 MG/ML 100 ML Bottle IV PRN (05:38)
[2017-11-30] MEDS ORDERED: Sodium Chloride 0.9% 71 ML IV SCH (05:45)
[2017-11-30] MEDS ORDERED: Sodium Chloride 0.9% 10 ML Syringe FLUSH SCH (05:45)
[2017-11-30] MEDS: Nicotine 21 MG/24 Hr Patch TRDERM SCH (09:33)
[2017-11-30] MEDS: Pantoprazole 40 MG Vial IVPUSH SCH (09:34)
[2017-11-30] MEDS: Magnesium Sulfate/Water 2 GM in Premix Bag 1 BAG IV SCH ×3 (09:37→21:31)
[2017-11-30] MEDS: VANCOMYCIN RECTAL SCH ×6 (09:38→21:31)
[2017-11-30] MEDS: SODIUM CHLORIDE 0.9% RECTAL SCH ×6 (09:38→21:31)
[2017-11-30] MEDS: VERIFY SCOP PATCH TOP SCH (09:38)
[2017-11-30] MEDS: Potassium Acetate 20 MEQ, Lidocaine 1% 2 ML in Sodium Chloride 0.9% 100 ML IV SCH ×2 (09:39→12:11)
[2017-11-30] MEDS: Potassium Phosphates 20 MMOLE, Lidocaine 1% 2 ML in Sodium Chloride 0.9% 150 ML IV SCH ×3 (15:48→21:31)
[2017-12-01] MEDS: metroNIDAZOLE/Normal Saline 500 MG in Premix Bag 1 BAG IV SCH ×4 (00:07→18:36)
[2017-12-01] MEDS: LORazepam 2 MG/ML MDV IVPUSH PRN (04:11)
[2017-12-01] MEDS: Dextrose 5%-Lactated Ringers 1,000 ML IV SCH (04:11)
[2017-12-01] MEDS: Magnesium Sulfate/Water 2 GM in Premix Bag 1 BAG IV SCH ×4 (04:30→21:06)
[2017-12-01] MEDS: Metoclopramide 10 MG/2 ML SDV IVPUSH SCH ×4 (04:30→22:30)
[2017-12-01] MEDS ORDERED: Meropenem 500 MG SDV ONE ×2 (06:34→06:50)
[2017-12-01] MEDS ORDERED: Meropenem 500 MG in Sodium Chloride 0.9% 50 ML IV STA (06:45)
[2017-12-01] MEDS ORDERED: Sodium Chloride 0.9% 50 ML ONE (06:51)
[2017-12-01] MEDS ORDERED: Midazolam 1 MG/ML 2 ML SDV ONE (07:21)
[2017-12-01] MEDS ORDERED: Ketamine 500 MG/5 ML MDV ONE (07:21)
[2017-12-01] MEDS ORDERED: fentaNYL 250 MCG/5 ML SDV ONE ×2 (07:21→08:17)
[2017-12-01] MEDS ORDERED: Dexamethasone 4 MG/ML SDV ONE (07:22)
[2017-12-01] MEDS ORDERED: Propofol 200 MG/20 ML SDV ONE (07:22)
[2017-12-01] MEDS ORDERED: Glycopyrrolate 0.2 MG/ML 5 ML MDV ONE (07:22)
[2017-12-01] MEDS ORDERED: Succinylcholine 200 MG/10 ML MDV ONE (07:22)
[2017-12-01] MEDS ORDERED: Neostigmine Methylsulfate 1 MG/ML 5 ML Syringe ONE (07:22)
[2017-12-01] MEDS ORDERED: Rocuronium 50 MG/5 ML Vial ONE (07:22)
[2017-12-01] MEDS ORDERED: Ondansetron 4 MG/2 ML SDV ONE (07:22)
[2017-12-01] MEDS ORDERED: Ropivacaine 35 ML, Dexamethasone 8 MG, EPINEPHrine 0.4 MG, Sodium Chloride 0.9% 42.6 ML NERVRT SCH ×4 (08:00)
[2017-12-01] MEDS ORDERED: Lactated Ringers 1,000 ML ONE (08:54)
[2017-12-01] MEDS: VERIFY SCOP PATCH TOP SCH (10:34)
[2017-12-01] MEDS: Pantoprazole 40 MG Vial IVPUSH SCH (10:36)
[2017-12-01] MEDS: Nicotine 21 MG/24 Hr Patch TRDERM SCH (10:36)
[2017-12-01] MEDS: VANCOMYCIN RECTAL SCH ×2 (10:39)
[2017-12-01] MEDS: SODIUM CHLORIDE 0.9% RECTAL SCH ×2 (10:39)
[2017-12-01] MEDS ORDERED: Dextrose 5%-Lactated Ringers 1,000 ML IV SCH (14:00)
[2017-12-01] MEDS: 1: AA 5%/Calcium/D20W/Lytes 1,000 ML with MVI, Adult with Vitamin K 10 ML, Chromium/Copp IV SCH ×3 (14:20)
[2017-12-01] MEDS: Vancomycin 250 MG/5 ML ML Oral Solution PO SCH ×2 (16:14→21:05)
[2017-12-01] MEDS: Meperidine 300 MG/30 ML PCA Vial IV PRN (18:56)
[2017-12-01] MEDS: Lactobacillus Rhamnosus GG (Probiotic) Cap PO SCH (21:06)
[2017-12-02] MEDS: metroNIDAZOLE/Normal Saline 500 MG in Premix Bag 1 BAG IV SCH ×4 (00:17→18:06)
[2017-12-02] MEDS ORDERED: Meperidine PF 75 MG/ML Syringe IM ONE (00:41)
[2017-12-02] MEDS ORDERED: hydrOXYzine HCl 100 MG/2 ML SDV IM ONE (00:42)
[2017-12-02] MEDS: 1: AA 5%/Calcium/D20W/Lytes 1,000 ML with MVI, Adult with Vitamin K 10 ML, Chromium/Copp IV SCH ×3 (00:54)
[2017-12-02] MEDS ORDERED: fentaNYL 12 MCG/HR Transdermal Patch TRDERM SCH (01:00)
[2017-12-02] MEDS: Metoclopramide 10 MG/2 ML SDV IVPUSH SCH ×4 (04:06→21:36)
[2017-12-02] MEDS: Magnesium Sulfate/Water 2 GM in Premix Bag 1 BAG IV SCH ×4 (04:06→21:36)
[2017-12-02] MEDS: Vancomycin 250 MG/5 ML ML Oral Solution PO SCH (04:06)
[2017-12-02] MEDS ORDERED: Meperidine PF 75 MG/ML Syringe ONE (04:26)
[2017-12-02] MEDS ORDERED: hydrOXYzine HCl 100 MG/2 ML SDV ONE (04:26)
[2017-12-02] MEDS: Meperidine 300 MG/30 ML PCA Vial IV PRN ×2 (05:52→17:28)
[2017-12-02] MEDS ORDERED: Vancomycin 250 MG/5 ML ML Oral Solution GTUBE SCH (07:00)
[2017-12-02] MEDS ORDERED: 1: AA 5%/Calcium/D15W/Lytes 1,000 ML with MVI, Adult with Vitamin K 10 ML, Chromium/Copp IV SCH ×3 (07:30)
[2017-12-02] MEDS ORDERED: hydrOXYzine HCl 100 MG/2 ML SDV IM PRN (07:34)
[2017-12-02] MEDS ORDERED: [UNRECOGNIZED DRUG - REMARK] TOP SCH (09:00)
[2017-12-02] MEDS ORDERED: [UNRECOGNIZED DRUG - REMARK] TRDERM SCH (09:00)
--- NOTE | 2017-12-02 09:31 | CR ---
Abdomen 2V AP Flat Upright INDICATION: F/U ileus/SBO COMPARISON: CT previous day and abdomen x-ray 11/28/2017 FINDINGS: 3 views. NG tube remains in place. Scattered loops of mildly dilated small bowel with associated air-fluid lev els. No significant interval change. Skin jeff and surgical drain remain in place.
[2017-12-02] MEDS: Nicotine 21 MG/24 Hr Patch TRDERM SCH (09:43)
[2017-12-02] MEDS: VERIFY SCOP PATCH TOP SCH (09:44)
[2017-12-02] MEDS: Lactobacillus Rhamnosus GG (Probiotic) Cap PO SCH ×2 (09:44→20:31)
[2017-12-02] MEDS: Pantoprazole 40 MG Vial IVPUSH SCH (09:44)
--- NOTE | 2017-12-02 09:57 | CR ---
Chest 1V Frontal INDICATION: INSERTION TLSC COMPARISON: None FINDINGS: AP portable chest. Left subclavian central line in place with tip in the right atrium. Heart size normal. No infiltrates or pleural effusions. No pneumothorax seen.
[2017-12-02] MEDS: Vancomycin 250 MG/5 ML ML Oral Solution GTUBE SCH ×3 (10:45→21:36)
[2017-12-02] MEDS: 1: AA 5%/Calcium/D15W/Lytes 1,000 ML with MVI, Adult with Vitamin K 10 ML, Chromium/Copp IV SCH ×6 (10:45→20:30)
--- NOTE | 2017-12-02 10:55 | PN ---
DATE OF SERVICE: 11/30/2017 The patient continues to have some ongoing nausea and some emesis, particularly with erythromycin that seems to be causing quite a bit in the way of cramping. CT scan shows what appears to be more of an obstructive pattern at the ileorectal anastomosis. There was some mesenteric swelling, but there does not appear to be any abnormal blood supply. She continues to have some rectal bleeding, and the CT scan showed some thickening of the rectum, probably related to the Clostridium difficile colitis. The plan at this point will be to check some abdominal x-rays tomorrow morning. If that does not open up, we will probably need to reoperate at that point to try to release the small bowel obstruction and decompress the small bowel, but we will also place a gastrostomy tube and do a proctoscopy at that time to evaluate to how things look in the rectum and placement of a central line to begin some TPN. Her potassium and magnesium are both low, maybe supplemented, and we will tentatively plan to proceed with the surgical procedure tomorrow morning. Toni Peterson MD /[id number]
--- NOTE | 2017-12-02 11:11 | PN ---
DATE OF SERVICE: 11/29/2017 The patient has been afebrile with stable vital signs. She continues to have some frequent loose bowel movements but still has a fair amount out of the NG tube. I think we will obtain a CT scan of the abdomen and pelvis early tomorrow, after giving her some oral contrast perhaps in the range of 3 hours prior to that, to see what can be done in terms of small bowel motility. Otherwise, if things don't open up in that she can resume some oral intake in the next day or 2, we will likely need to get some sort of central line and proceed with some TPN. Otherwise, we will continue to maximize activity and work with pulmonary toilet. We will try discontinuing the Mckeon catheter today and have her get in the shower, after removing the Aquacel dressing. Toni Peterson MD /[id number]
--- NOTE | 2017-12-02 12:55 | PN ---
DATE OF SERVICE: 12/02/2017 The patient has been afebrile with stable vital signs. Pain control was a little bit problematic last evening, but it has improved with increasing the ORDNANCE HANDLER dose, along with adding a fentanyl patch. Clinically, otherwise she appears to be stable, and urine output is good. We will back down on the D5LR to keep open and continue with the TPN. The plan is to proceed with delayed primary closure of abdominal incision tomorrow and will continue with increasing activity and pulmonary toilet. Toni Peterson MD /[id number]
[2017-12-02] MEDS: Scopolamine 1.5 MG Transdermal Patch TOP SCH (21:02)
[2017-12-03] MEDS: metroNIDAZOLE/Normal Saline 500 MG in Premix Bag 1 BAG IV SCH ×4 (00:45→19:00)
[2017-12-03] MEDS: Metoclopramide 10 MG/2 ML SDV IVPUSH SCH ×2 (04:24→10:12)
[2017-12-03] MEDS: Vancomycin 250 MG/5 ML ML Oral Solution GTUBE SCH ×3 (04:24→16:09)
[2017-12-03] MEDS: Magnesium Sulfate/Water 2 GM in Premix Bag 1 BAG IV SCH (04:25)
[2017-12-03] MEDS ORDERED: Meropenem 500 MG SDV ONE (06:48)
[2017-12-03] MEDS ORDERED: Lidocaine 1% with EPINEPHrine 1:100,000 50 ML MDV ONE (06:48)
[2017-12-03] MEDS ORDERED: Bupivacaine 0.5% 50 ML MDV ONE (06:48)
[2017-12-03] MEDS: 1: AA 5%/Calcium/D15W/Lytes 1,000 ML with MVI, Adult with Vitamin K 10 ML, Chromium/Copp IV SCH ×6 (07:07→16:55)
[2017-12-03] MEDS ORDERED: Propofol 200 MG/20 ML SDV ONE (07:11)
[2017-12-03] MEDS ORDERED: fentaNYL 100 MCG/2 ML SDV ONE (07:11)
--- NOTE | 2017-12-03 09:30 | PN ---
DATE OF SERVICE: 12/03/2017 SUBJECTIVE: Jovany is n.p.o. for delayed primary closure. Pain is controlled. She has TPN. REVIEW OF SYSTEMS: Remainder of review of systems negative for any pertinent positives and negatives. OBJECTIVE: GENERAL: Jovany Palomares is a 52-year-old female. VITAL SIGNS: TPR is 97.7, 77, 16; blood pressure 110/59. HEENT: Negative. NECK: Supple. HEART: Regular rate and rhythm. LUNGS: Clear. ABDOMEN: Dressings dry and intact. Abdominal binder is on. EXTREMITIES: Without peripheral edema. ASSESSMENT: 1. Exploratory laparotomy with TAP block, release of volvulus, repair of internal hernia, placement of Interceed mesh, central venous catheter insertion, gastrostomy tube insertion, proctoscopy. Date 12/02/2017. 2. Postoperative ileus. 3. Right colectomy, 11/23/2017. 4. Delayed primary closure, 11/25/2017. PLAN: Orders to be written per Toni Peterson MD, after delayed primary closure. Clary Jimenez PA-C /[id number]
[2017-12-03] MEDS ORDERED: Magnesium Citrate Solution 296 ML Bottle GTUBE ONE (10:00)
[2017-12-03] MEDS: Meperidine 300 MG/30 ML PCA Vial IV PRN (10:01)
[2017-12-03] MEDS: Nicotine 21 MG/24 Hr Patch TRDERM SCH (10:10)
[2017-12-03] MEDS: Lactobacillus Rhamnosus GG (Probiotic) Cap PO SCH (10:11)
[2017-12-03] MEDS: VERIFY SCOP PATCH TOP SCH (10:11)
[2017-12-03] MEDS: Pantoprazole 40 MG Vial IVPUSH SCH (10:12)
[2017-12-03] MEDS: Cyclobenzaprine 10 MG Tab GTUBE PRN ×2 (11:13→19:44)
[2017-12-03] MEDS: Dextrose 5%-Lactated Ringers 1,000 ML IV SCH (11:31)
[2017-12-03] MEDS: Ondansetron 4 MG/2 ML SDV IV PRN ×2 (14:42→19:36)
[2017-12-03] MEDS: LORazepam 2 MG/ML MDV IVPUSH PRN ×3 (15:55→22:49)
[2017-12-03] MEDS ORDERED: Metoclopramide Oral Soln 10 MG/10 ML UD Cup GTUBE SCH (16:00)
[2017-12-04] MEDS: metroNIDAZOLE/Normal Saline 500 MG in Premix Bag 1 BAG IV SCH ×4 (00:54→19:04)
[2017-12-04] MEDS: LORazepam 2 MG/ML MDV IVPUSH PRN ×3 (02:17→08:45)
[2017-12-04] MEDS: 1: AA 5%/Calcium/D15W/Lytes 1,000 ML with MVI, Adult with Vitamin K 10 ML, Chromium/Copp IV SCH ×3 (03:04)
[2017-12-04] MEDS: Ondansetron 4 MG/2 ML SDV IV PRN (05:53)
[2017-12-04] MEDS ORDERED: Central Total Parenteral Nutrition Bag SCH (07:45)
[2017-12-04] MEDS: Nicotine 21 MG/24 Hr Patch TRDERM SCH (09:13)
[2017-12-04] MEDS: Bisacodyl 10 MG Supp RECTAL SCH ×2 (09:13→21:10)
[2017-12-04] MEDS: Pantoprazole 40 MG Vial IVPUSH SCH (09:14)
[2017-12-04] MEDS: VERIFY SCOP PATCH TOP SCH (09:14)
--- NOTE | 2017-12-04 09:37 | PN ---
DATE OF SERVICE: 12/03/2017 The patient has been afebrile with stable vital signs. Oral intake is fairly good with getting in the G-tube. Abdomen is somewhat distended. She has not had any flatus or bowel movement as of yet. No further bleeding has been noted, and she is tolerating the vancomycin via the G-tube. If her electrolytes show improvement, then we will continue present TPN rate and content. Otherwise, she underwent a delayed primary closure of abdominal incision without incident. The inside KHURRAM drain was removed, along with Mckeon catheter, and then otherwise, we will maximize activity and work with pulmonary toilet. Continue with IV Flagyl and vancomycin for the C. difficile infection. Toni Peterson MD /[id number]
[2017-12-04] MEDS: Metoclopramide 10 MG/2 ML SDV IVPUSH SCH ×3 (09:54→21:14)
[2017-12-04] MEDS ORDERED: Vancomycin 250 MG/5 ML ML Oral Solution GTUBE SCH ×2 (10:00)
[2017-12-04] MEDS ORDERED: Vancomycin 1,000 MG SDV PO SCH (10:00)
--- NOTE | 2017-12-04 10:01 | OR ---
DATE OF PROCEDURE: 12/03/2017 PREOPERATIVE DIAGNOSIS: Open abdominal incision. POSTOPERATIVE DIAGNOSIS: Open abdominal incision. OPERATIVE PROCEDURE: Delayed primary closure of open abdominal incision. ANESTHESIA: Local plus IV sedation. INDICATION FOR PROCEDURE: The patient is 48 hours status post open laparotomy with open bowel. The wound was felt to be high risk for a wound infection if a primary closure was undertaken. Given this on Friday, the incision was packed open for a planned delayed primary closure at this time. Potential risks including bleeding and infection were reviewed, and the patient wishes to proceed. DETAILS OF PROCEDURE: The patient was taken to the operating room and placed in a supine position, sitting up somewhat to minimize aspiration risk. The abdominal dressing was taken down. Her incision was inspected and found to be clean. Wound was then prepped and draped, anesthetized with 1% lidocaine mixed with Marcaine and irrigated with meropenem-containing saline solution. A 10-Romansh round Tony-Luna drain was placed through a stab wound inferior to the main incision across the bed of the fascia, and sutured in with a 4-0 Vicryl stitch. The incision which was a long midline incision was then closed with a layer of 3-0 Vicryl stitch deep and a 4-0 Vicryl subdermal stitch, and jeff for the skin. Dressing was applied, and there were no evident complications. Toni Peterson MD /[id number]
--- NOTE | 2017-12-04 11:04 | PN ---
DATE OF SERVICE: 12/04/2017 SUBJECTIVE: Jovany had delayed primary closure yesterday. She came back from the procedure, has had nausea. She has vomited 3 times. G-tube is intact. It flushes well, but it is not draining. She has had no bowel movement. KHURRAM drain in incision is not holding any air. Vital signs have been stable. Temp max 99.5. REVIEW OF SYSTEMS: Remainder of review of systems negative for any pertinent positives and negatives. OBJECTIVE: GENERAL: Jovany Palomares is a 52-year-old female. VITAL SIGNS: TPR is 99.5, 73, 16, and blood pressure 126/78. HEENT: Negative. NECK: Supple. HEART: Regular rate and rhythm. LUNGS: Clear. ABDOMEN: KHURRAM drain is full of air. Abdominal binder is on. EXTREMITIES: Without peripheral edema. ASSESSMENT: 1. Delayed primary closure, 12/03/2017. 2. Exploratory laparotomy with TAP block, release of volvulus, repair of internal hernia, placement of Interceed mesh, central venous catheter insertion, gastrostomy tube insertion, and proctoscopy. Date of surgery, 12/01/2017. 3. Postoperative ileus. 4. Right colectomy, 11/23/2017. 5. Delayed primary closure, 11/25/2017. PLAN: 1. Discontinue KHURRAM drain. 2. N.p.o. with ice chips only. 3. Dulcolax suppository per rectum, one q.12 hours until BM. 4. Check CBC, CMP, mag, and phos in a.m. 5. Continue TPN at same rate and content. 6. We will evaluate p.r.n. or in a.m. Clary Jimenez PA-C /[id number]
--- NOTE | 2017-12-04 11:33 | OR ---
DATE OF PROCEDURE: 11/23/2017 PREOPERATIVE DIAGNOSES: 1. Cecal volvulus. 2. History of severe chronic constipation. POSTOPERATIVE DIAGNOSES: 1. Cecal volvulus through congenital internal hernia. 2. Severe chronic constipation. OPERATIVE PROCEDURE: Exploratory laparotomy with: 1. Reduction of volvulus through internal hernia (74409). 2. Subtotal colectomy (90091). 3. Placement of Interceed mesh to prevent adhesion formation between the viscera and the pelvic abdominal wall (22932). ANESTHESIA: General. INDICATIONS FOR PROCEDURE: A 52-year-old female presenting with a clinical picture of cecal volvulus. The plan is to proceed with an exploratory laparotomy with probable right colectomy. The patient also describes a quite severe chronic constipation. If pathology is identified such that it would be a problem above and beyond the present cecal volvulus, one might consider more extensive resection at this point to avoid need for additional surgery to combat the chronic constipation. Potential risks of the procedure including bleeding, infection, leaks from various GI tract closures, problems with bowel obstruction over time as well as the possibility of cardiopulmonary, septic, or hemorrhagic complications leading to were discussed, and the patient wishes to proceed. DETAILS OF PROCEDURE: The patient was taken to the operating room and placed in a supine position. After general endotracheal anesthesia was induced, a Mckeon catheter was inserted and the abdomen prepped and draped, a nasogastric tube had already been placed. A midline incision was then made and carried down through the skin and subcutaneous tissue. This was from roughly a handsbreadths above the umbilicus and then extended eventually down toward the level of the pubis. As one entered the abdomen, extremely strikingly dilated cecal volvulus was identified. 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 This could not be overtly reduced from this direction at this point, and given this, the bowel was then mobilized upward away from the right lateral peritoneal reflection and initially the distal small bowel was divided with a COLLEEN stapler as was then the transverse colon somewhat to the right of the midline. Especially at this point, I did note that there was a large amount of stool present within the transverse colon, splenic flexure, and ascending colon with these areas being quite distended. Careful palpation of the rectum did not reveal any obvious obstructive findings and this appeared to be more of a chronic functional problem with a large amount of hard stool present in that area consistent with the patient's preoperative history of often going 5 days or so without having a bowel movement. At this point, the omentum was divided away from the transverse colon on the right side and the mesentery between the divided transverse colon and the distal small bowel was divided with a combination of vascular mesenteric loads. This continued up to the point where the cecum passed through the defect. This then allowed mobilization of the small bowel from below and then the transverse colon from above through the defect and the remaining vascular attachments of the cecum were then divided with vascular stapler, and the specimen delivered from the field. At this point as had been intermittently through the procedure, careful identification of the right ureter and duodenum was maintained, so as to minimize injury to those structures. At this point, as discussed earlier, the patient has severe chronic constipation; however, this appeared to be more than just related to the cecal volvulus as there was a large amount of distention and a large amount of very firm stool present within the colon up to the level more or less rectosigmoid junction. Again, the rectum was then carefully palpated and no obstructing masses could be identified. This appeared to be more of a chronic functional probable slow transit constipation. As discussed with the patient preoperatively, we then decided to do a more extensive colon resection as simply hooking this up to the transverse colon at this point probably would result in continued problems with the chronic constipation. Given this, the peritoneal reflection of the left colon was divided and the left colon reflected medially and similarly the splenic flexure was taken down with a combination of Harmonic scalpel and cautery dissection, and at that point, the junction of the rectum and sigmoid colon was the divided with the COLLEEN stapler and the mesentery to the remaining colon proximal to that divided with a combination of vascular mesenteric loads. Care was then taken to avoid injury to the left ureter in this case and that remaining specimens were delivered from the field. At this point, the ileorectal anastomosis was accomplished with 2 internal firings of the COLLEEN mae load hooking this up in a [id number] manner. The common opening was then closed transversely with a COLLEEN purple load. The angle was anastomosed and mesenteric defect was approximated with some 3-0 Vicryl stitch. The mesenteric defect was closed on the left side of the anastomosis down toward the posterior retroperitoneum of the pelvis and lower abdomen with 2-0 silk stitch. At that point, no further problems were noted. The abdomen was irrigated with antibiotic-containing saline solution and a Tony-Luna drain was placed through the stab wound in the right mid abdomen, taken across the area of the right-sided dissection, from there into the pelvis. The ileorectal anastomosis was then reinforced with some fibrin sealant and the midline fascia was then approximated with #2 Vicryl stitch. After this was partially closed and could be elevated, Interceed mesh was then placed from the pelvis in the midline up along the abdominal wall to minimize adhesion formation between the small bowel and the pelvic and abdominal wall structures limiting adhesion formation in that area. The fascial closure was then completed. The skin and subcutaneous tissue were felt to be high risk for a wound infection if a primary closure was undertaken given that these were packed open for a planned delayed primary closure in 48 hours. The patient was taken to the recovery room in satisfactory condition. Toni Peterson MD /[id number]
[2017-12-04] MEDS: 1: AA 5%/Calcium/D15W/Lytes 2,000 ML with MVI, Adult with Vitamin K 10 ML, Chromium/Copp IV SCH ×3 (13:43)
[2017-12-04] MEDS ORDERED: Propofol 200 MG/20 ML SDV ONE (16:11)
[2017-12-04] MEDS ORDERED: Midazolam 1 MG/ML 2 ML SDV ONE (16:11)
[2017-12-04] MEDS ORDERED: fentaNYL 100 MCG/2 ML SDV ONE (16:11)
[2017-12-05] MEDS: metroNIDAZOLE/Normal Saline 500 MG in Premix Bag 1 BAG IV SCH ×5 (00:18→23:17)
[2017-12-05] MEDS: Metoclopramide 10 MG/2 ML SDV IVPUSH SCH ×4 (04:09→21:52)
[2017-12-05] MEDS: Meperidine 300 MG/30 ML PCA Vial IV PRN ×2 (04:56→18:50)
[2017-12-05] MEDS ORDERED: Central Total Parenteral Nutrition Bag SCH (07:30)
--- NOTE | 2017-12-05 08:48 | PN ---
DATE OF SERVICE: 12/05/2017 SUBJECTIVE: Jovany started having bowel movements. Vital signs have been afebrile. Her oral intake is ice chips only. Gastrostomy tube was manipulated and opened. She had an output of 250. She has had no further emesis. States that she is feeling much better today. TPN continues to be infused. OBJECTIVE: GENERAL: Jovany Palomares is a 52-year-old female. She is alert and oriented. VITAL SIGNS: TPR is 98.4, 84, 18. Blood pressure 134/66. HEENT: Negative. NECK: Supple. HEART: Regular rate and rhythm. LUNGS: Clear. ABDOMEN: Dressings dry and intact. Abdominal binder is on. Gastrostomy tube in place. EXTREMITIES: Without peripheral edema. SCDs are on. ASSESSMENT: 1. Postoperative ileus. 2. Delayed primary closure, 12/03/2017. 3. Exploratory laparotomy with tap block release of volvulus repair of internal hernia, placement of Interceed mesh, central vein catheter insertion, gastrostomy tube insertion, and proctoscopy. Date of surgery, 12/01/2017. 4. Right colectomy 11/23/2017. 5. Delayed primary closure, 11/25/2017. PLAN: 1. Continue TPN, same rate and content. 2. No lipids indicated for this patient, which would increase infection rate. 3. Check CBC, CMP, and mag phos in a.m. 4. Discontinue Dulcolax suppositories. 5. Discontinue Mckeon catheter, 12/06/2017 at 0600 hours. 6. Good pulmonary toilet. 7. To maintain on ice chips only for at least 3 days. 8. We will evaluate p.r.n. or in a.m. Clary Jimenez PA-C /[id number]
[2017-12-05] MEDS: Nicotine 21 MG/24 Hr Patch TRDERM SCH (08:56)
[2017-12-05] MEDS: Pantoprazole 40 MG Vial IVPUSH SCH (08:57)
[2017-12-05] MEDS: VERIFY SCOP PATCH TOP SCH (08:57)
[2017-12-05] MEDS: 1: AA 5%/Calcium/D15W/Lytes 2,000 ML with MVI, Adult with Vitamin K 10 ML, Chromium/Copp IV SCH ×3 (10:51)
[2017-12-05] MEDS: Dextrose 5%-Lactated Ringers 1,000 ML IV SCH (10:51)
[2017-12-05] MEDS: Cyclobenzaprine 10 MG Tab GTUBE PRN (10:55)
[2017-12-05] MEDS ORDERED: Propofol 200 MG/20 ML SDV ONE (11:02)
[2017-12-05] MEDS: Scopolamine 1.5 MG Transdermal Patch TOP SCH (21:53)
[2017-12-06] MEDS: Metoclopramide 10 MG/2 ML SDV IVPUSH SCH ×4 (04:38→21:01)
[2017-12-06] MEDS: metroNIDAZOLE/Normal Saline 500 MG in Premix Bag 1 BAG IV SCH ×3 (05:02→17:39)
[2017-12-06] MEDS ORDERED: 1: AA 5%/Calcium/D15W/Lytes 1,000 ML with MVI, Adult with Vitamin K 10 ML, Chromium/Copp IV SCH ×3 (06:07)
[2017-12-06] MEDS: Pantoprazole 40 MG Vial IVPUSH SCH (08:31)
[2017-12-06] MEDS: Nicotine 21 MG/24 Hr Patch TRDERM SCH (08:31)
[2017-12-06] MEDS ORDERED: Central Total Parenteral Nutrition Bag SCH (08:45)
[2017-12-06] MEDS ORDERED: Furosemide 20 MG Tab PO ONE (09:00)
[2017-12-06] MEDS: VERIFY SCOP PATCH TOP SCH (10:17)
[2017-12-06] MEDS: Magnesium Sulfate/Water 2 GM in Premix Bag 1 BAG IV SCH ×3 (10:18→21:01)
--- NOTE | 2017-12-06 10:28 | PN ---
DATE OF SERVICE: 12/06/2017 SUBJECTIVE: Jovany has been tolerating sips of clear liquids. Oral intake 240. She had one brief episode of nausea when she got up to go to the bathroom, has 2+ edema in her lower extremities. Reported some burning pain across her lower abdomen. G-tube put out 100 mL of a light pink drainage. Remains to be afebrile. States is feeling better. REVIEW OF SYSTEMS: Remainder of review of systems negative for any pertinent positives and negatives. OBJECTIVE: GENERAL: Jovany Palomares is a 52-year-old female. VITAL SIGNS: TPR 98.2, 76, 18. Blood pressure 127/75. HEENT: Negative. NECK: Supple. HEART: Regular rate and rhythm. LUNGS: Clear. ABDOMEN: Aquacel dressing dry and intact. Abdominal binder is on. EXTREMITIES: Reveal peripheral edema, nonpitting. There is no calf tenderness. ASSESSMENT: 1. Postoperative ileus, resolving. 2. Delayed primary closure, 12/03/2017. 3. Exploratory laparotomy, tap block release of volvulus, repair of internal hernia, placement of Interceed mesh, central vein catheter insertion, gastrostomy tube insertion, and proctoscopy. Date of operation, 12/01/2017. 4. Right colectomy, 11/23/2017. 5. Delayed primary closure, 11/25/2017. 6. TPN nutrition. PLAN: 1. Clear liquid diet, tray line. 2. May shower. 3. Check CBC, CMP, and phos in a.m. 4. Albumin 50 g IV for 3 days. Continue same TPN rate and content. 5. Lasix 10 mg 1 time today. 6. Cyclobenzaprine 10 mg p.o. p.r.n. muscle spasms. 7. Discontinue Flexeril to be given through PEG tube. 8. Magnesium sulfate 2 g IV q.6 hours x72 hours. 9. We will evaluate p.r.n. or in a.m. Clary Jimenez PA-C /[id number]
[2017-12-06] MEDS: Meperidine 300 MG/30 ML PCA Vial IV PRN (10:34)
[2017-12-06] MEDS: 1: AA 5%/Calcium/D15W/Lytes 2,000 ML with MVI, Adult with Vitamin K 10 ML, Chromium/Copp IV SCH ×3 (15:42)
[2017-12-07] MEDS: metroNIDAZOLE/Normal Saline 500 MG in Premix Bag 1 BAG IV SCH ×4 (00:49→17:22)
[2017-12-07] MEDS: Metoclopramide 10 MG/2 ML SDV IVPUSH SCH ×4 (03:04→22:06)
[2017-12-07] MEDS: Magnesium Sulfate/Water 2 GM in Premix Bag 1 BAG IV SCH ×4 (03:04→22:06)
[2017-12-07] MEDS: Meperidine 300 MG/30 ML PCA Vial IV PRN (03:28)
[2017-12-07] MEDS ORDERED: Central Total Parenteral Nutrition Bag SCH (08:15)
[2017-12-07] MEDS: Nicotine 21 MG/24 Hr Patch TRDERM SCH (09:23)
[2017-12-07] MEDS: VERIFY SCOP PATCH TOP SCH (09:24)
[2017-12-07] MEDS: Pantoprazole 40 MG Vial IVPUSH SCH (09:24)
--- NOTE | 2017-12-07 11:10 | PN ---
DATE OF SERVICE: 12/07/2017 SUBJECTIVE: Jovany states she is feeling good. She is on a clear liquid diet, has had 2300 in, one bowel movement. Gastrostomy tube has put out 600 mL. She has been up ambulating. Pain is controlled. States that she is feeling good. TPN is running without any difficulty. OBJECTIVE: GENERAL: Jovany Palomares is a 52-year-old female. She is sitting up in the chair. Color has improved. She is alert, oriented, talkative. VITAL SIGNS: TPR 97.7, 77, 18. Blood pressure 117/65. HEENT: Negative. NECK: Supple. HEART: Regular rate and rhythm. LUNGS: Clear. ABDOMEN: Dressings dry and intact. Abdominal binder is on. EXTREMITIES: With trace peripheral edema. ASSESSMENT: 1. Postoperative ileus, resolving. 2. Delayed primary closure, 12/03/2017. 3. Exploratory laparotomy with tap block, release of volvulus, repair of internal hernia, placement of Interceed mesh, central vein catheter insertion, gastrostomy tube insertion, and proctoscopy. Date of operation, 12/01/2017. 4. Right colectomy, 11/23/2017. 5. Delayed primary closure, 11/25/2017. 6. TPN therapy. PLAN: 1. Continue TPN same rate and content. 2. Clamp PEG tube or put clamp gastrostomy tube 5 hours, unclamp 1 hour, then unclamp p.r.n. any gas, abdominal pain, or bloating. 3. Check CBC, CMP, and phos in a.m. 4. Continue with Flagyl on day #9 for C. diff. 5. Good pulmonary toilet. 6. We will evaluate p.r.n. or in a.m. Clary Jimenez PA-C /[id number]
[2017-12-07] MEDS: 1: AA 5%/Calcium/D15W/Lytes 2,000 ML with MVI, Adult with Vitamin K 10 ML, Chromium/Copp IV SCH ×3 (15:03)
[2017-12-07] MEDS ORDERED: 1: AA 5%/Calcium/D15W/Lytes 2,000 ML with MVI, Adult with Vitamin K 10 ML, Chromium/Copp IV SCH ×3 (15:15)
[2017-12-07] MEDS: Cyclobenzaprine 10 MG Tab PO PRN (22:13)
[2017-12-08] MEDS: metroNIDAZOLE/Normal Saline 500 MG in Premix Bag 1 BAG IV SCH ×2 (00:02→06:00)
[2017-12-08] MEDS: Magnesium Sulfate/Water 2 GM in Premix Bag 1 BAG IV SCH ×4 (03:25→21:15)
[2017-12-08] MEDS: Metoclopramide 10 MG/2 ML SDV IVPUSH SCH ×4 (03:25→21:09)
[2017-12-08] MEDS: Dextrose 5%-Lactated Ringers 1,000 ML IV SCH (06:00)
[2017-12-08] MEDS ORDERED: Acetaminophen 325 MG Tab PO PRN (07:38)
[2017-12-08] MEDS ORDERED: Central Total Parenteral Nutrition Bag SCH (07:45)
--- NOTE | 2017-12-08 08:50 | PN ---
DATE OF SERVICE: 12/08/2017 SUBJECTIVE: Jovany has tolerated her gastrostomy tube clamping. She had 10 mL out over the past 24 hours. Vital signs have been stable. Her oral intake, clear liquid diet was 960. She reports her pain is controlled. She feels better, has no other concerns or questions today. OBJECTIVE: GENERAL: Jovany Palomares is a 52-year-old female. VITAL SIGNS: TPR is 98.3, 76, 18, blood pressure 121/69. HEENT: Negative. NECK: Supple. HEART: Regular rate and rhythm. LUNGS: Clear. ABDOMEN: Aquacel dressings in place. Gastrostomy tube clamped. EXTREMITIES: Without peripheral edema. ASSESSMENT: 1. Postoperative ileus, resolved. 2. TPN nutritional therapy. 3. Delayed primary closure, 12/03/2017. 4. Exploratory laparotomy with TAP block, release of volvulus, repair of internal hernia, placement of Interceed mesh, central vein catheter insertion, gastrostomy tube insertion, and proctoscopy. Date of operation, 12/01/2017. 5. Right subtotal colectomy, 11/23/2017. 6. Delayed primary closure, 11/25/2017. PLAN: 1. Decrease TPN to 40 mL/h. 2. Full liquid diet. 3. Clamp gastrostomy tube. Unclamp if any pain, bloating, nausea, or vomiting. 4. Flagyl 500 mg p.o. q.8 hours. 5. Discontinue IV Flagyl. 6. Discontinue FEATURE WRITER and continuous pulse ox. 7. Oxycodone 5 mg 1-2 every 4 hours p.r.n. pain. 8. Tylenol 650 mg q.4 hours p.r.n. lesser pain. 9. Discontinue Aquacel dressing and may shower. 10.Check CBC, CMP, and phos in the a.m. 11.We will evaluate p.r.n. or in the a.m. Clary Jimenez PA-C /[id number]
[2017-12-08] MEDS: Nicotine 21 MG/24 Hr Patch TRDERM SCH (09:19)
[2017-12-08] MEDS: VERIFY SCOP PATCH TOP SCH (09:20)
[2017-12-08] MEDS: Pantoprazole 40 MG Vial IVPUSH SCH (09:21)
[2017-12-08] MEDS ORDERED: 1: AA 5%/Calcium/D15W/Lytes 2,000 ML with MVI, Adult with Vitamin K 10 ML, Chromium/Copp IV SCH ×3 (11:00)
[2017-12-08] MEDS: 1: AA 5%/Calcium/D15W/Lytes 1,000 ML with MVI, Adult with Vitamin K 10 ML, Chromium/Copp IV SCH ×3 (11:57)
--- NOTE | 2017-12-08 12:25 | OR ---
DATE OF PROCEDURE: 11/25/2017 PREOPERATIVE DIAGNOSIS: Open abdominal incision. POSTOPERATIVE DIAGNOSIS: Open abdominal incision. PROCEDURE: Delayed primary closure of open abdominal incision. ANESTHESIA: Local plus IV sedation. INDICATIONS FOR PROCEDURE: The patient is status post a right colon resection 48 hours ago at which the skin and subcutaneous tissue were felt to be high risk for wound infection if primary closure was undertaken. Given this, the wound was packed open for planned delayed primary closure at this time. Potential risks including bleeding, infection were reviewed, and the patient wishes to proceed. The patient also received a transverse abdominis plane block bilaterally to facilitate postoperative pain control. DETAILS OF PROCEDURE: The patient was taken to the operating room and placed in supine position with the head raised up to 30 degrees to limit the risk of pulmonary aspiration. Using ultrasound, bilateral transverse abdominis plane blocks were placed using standard solution. The blocks were placed at the level roughly long term between the lower end of the costal margin and the anterosuperior iliac spine, thus covering the central abdomen where the incision was located. Following this, the dressing was taken down and incision inspected and found to be clean. The wound was then prepped and draped, anesthetized with 1% lidocaine mixed with Marcaine and irrigated with a meropenem-containing saline solution. A 10-Burmese round Tony-Luna drain was then placed through stab wound beneath the incision, placed in the bed of the incision and sutured it with a 3-0 Vicryl stitch. The incision was then closed with a layer of 3-0 Vicryl stitch and deep subcutaneous tissue with 4-0 Vicryl subdermal stitch and jeff for the skin. Dressing was applied. The patient was taken to the recovery room in satisfactory condition. There were no evident of complications. Toni Peterson MD /[id number]
[2017-12-08] MEDS: metroNIDAZOLE 250 MG Tab PO SCH ×2 (13:31→21:15)
--- NOTE | 2017-12-08 13:53 | OR ---
DATE OF PROCEDURE: 12/01/2017 PREOPERATIVE DIAGNOSES: 1. Postoperative small bowel obstruction. 2. Indication for central venous access. POSTOPERATIVE DIAGNOSES: 1. Indications for central venous access. 2. Small bowel obstruction secondary to small bowel volvulus. 3. Marked distention of small bowel. 4. Clostridium difficile proctocolitis. OPERATIVE PROCEDURE: 1. Insertion of left subclavian vein triple-lumen catheter (76885). 2. Exploratory laparotomy with:. a. Release of small bowel volvulus and closure of internal hernia (88414). b. Enterotomy for decompression of small bowel (46598). c. Placement of tube gastrostomy (99270). d. Placement of Interceed mesh that was placed in the small bowel from pelvic and abdominal wall to limit recurrent adhesion formation (68780). 3. Flexible sigmoidoscopy. ANESTHESIA: General. INDICATIONS FOR PROCEDURE: The patient has had a persistent postoperative small bowel obstruction, status post a recent subtotal colectomy. This has been refractory to conservative treatment including a nasogastric obstruction. The plan is to proceed with an exploratory laparotomy at this point. The patient at this point meets indications for IV hyperalimentation and a central line will be inserted. We will also most likely do a flexible sigmoidoscopy at some point in the procedure to see to what extent there is evidence of persistent Clostridium difficile infection as well as to try to elicit the cause of her rectal bleeding. Potential risks including bleeding, infection, leaks from various GI tract closures, problems with bowel obstruction recurring, or pneumohemothorax during the insertion of central line were all gone over and the patient wishes to proceed. One additional adjunct is we will place a gastrostomy tube so as to avoid the need for nasogastric tube in the postoperative period given the likelihood of some persistent postoperative ileus following this procedure. DETAILS OF PROCEDURE: The patient was taken to the operating room and placed in a supine position. After general endotracheal anesthesia was induced, the upper chest and neck areas were prepped and draped and the left subclavian vein cannulated, a guidewire passed over the guidewire, a triple-lumen catheter positioned, good in and outflow was noted and the ports were flushed with heparinized saline, and again sutured the skin with some 3-0 silk stitch and dressing applied. Subsequent chest x-ray showed good catheter position without complications. At this point, the patient converted to a lithotomy position and a Mckeon catheter was inserted and the abdomen was prepped and draped. Previous jeff and midline incision sutures were then divided and the incision was extended slightly superiorly and slightly inferiorly from the original points of the incision. Initially, exploration revealed markedly distended small bowel, so as to be able to manipulate this satisfactory. At this point, a small enterotomy was placed and a [place] sump tube positioned in the small bowel and the entire length of the small bowel was then decompressed with large amount of air and fluid. Once this was completed, the sump tube was removed and the site closed with a mae COLLEEN staple line oriented transversely, which was then reinforced with 3-0 Vicryl seromuscular stitch. This then allowed more adequate examination of the small bowel. As one traced the small bowel downward, it appeared to have created a volvulus type effect underneath the area of the ileorectal anastomosis. That mesenteric defect had originally been closed on its left side from that point to the adjacent retroperitoneum with a 3-0 Vicryl stitch, but coming from the right side of the bowel despite the mesenteric defect being closed on the left side had acutely angulated there creating an effective volvulus. This was reduced at this point, and that area of the ileorectal anastomosis located was sutured to the retroperitoneum then on the right side with a 3-0 silk stitch. At this point, a tube gastrostomy was placed and a size 18-Slovak Mckeon catheter was placed through a stab wound in left subcostal area and a pursestring stitch of 3-0 Vicryl stitch was placed in the stomach along the mid greater curvature and gastrotomy was placed and the tube was then positioned into the stomach and the catheter inflated with 15 mL of saline. The suture was then drawn up and initial stitch was used then to tack up the gastrostomy to the abdominal wall. This was then tacked up with 3 additional 3-0 Vicryl stitches including placement of some omentum along the edges of the gastrostomy fixation site. The tube itself was then affixed to the skin level with a 3-0 nylon stitch. At this point, the abdomen was irrigated with antibiotic-containing saline solution. To limit recurrent adhesion formation given the lack of available omentum, an Interceed mesh was placed along the lower aspect of the pelvis up along the abdominal wall underneath the incision, so as to displace the small bowel away from those surfaces and to limit recurrent adhesion formation. The midline fascia was then approximated with #2 Vicryl stitch and the skin and subcutaneous tissue were felt to be high risk for a wound infection should a closure of that layer be undertaken, given this was packed open with iodoform gauze and a dressing applied. The flexible sigmoidoscope was then passed into the rectum and it was noted that the anastomosis from the vantage point was widely patent as it was around the examination from the laparotomy standpoint. There were patchy areas of ulcers that were now covered with fibrinous exudate consistent with healing Clostridium difficile pseudomembranous colitis. No bleeding was seen, and this overall appeared to be a healing process. The scope was then withdrawn and that phase of the procedure concluded. Finally at the beginning of the procedure, after the insertion of central line, using continuous ultrasound guidance, bilateral transversus abdominis plane blocks were placed using standard solution. This block was placed more or less in a plane between the costal margin and anterosuperior iliac spine on each side to allow any coverage over the upper, mid, and some extent lower abdomen. The patient was taken to the recovery room in satisfactory condition. There were no evident complications. Toni Peterson MD /[id number]
--- NOTE | 2017-12-08 16:59 | PN ---
DATE OF SERVICE: 12/04/2017 The patient during the day was noted to have a persistent dysfunction of her gastrostomy tube despite manipulation of the tube, removal of the skin stitch to make sure it was not overly tight and various other positional manipulations. The G-tube fails to satisfactorily drain and the patient now has significant ileus and vomiting. Situation was discussed with the patient and her and nasogastric tube was placed to evacuate the stomach, and we will plan to revise the gastrostomy tube by means of a percutaneous endoscopic approach. I believe we can probably pass a wire through the existing gastrostomy tube and then exchange that endoscopically with a percutaneously replace the tube via a transoral approach. Potential risks were reviewed with the patient and including bleeding, infection, possible need for more of an open procedure were all gone over and they wished to proceed. Nasogastric tube will be placed high in the position until the gastrostomy tube is completed to minimize chances of aspiration of gastric contents during the course of the procedure. Toni Peterson MD /[id number]
[2017-12-08] MEDS: Scopolamine 1.5 MG Transdermal Patch TOP SCH (21:13)
[2017-12-08] MEDS: Ondansetron 4 MG/2 ML SDV IV PRN (21:20)
[2017-12-09] MEDS: Metoclopramide 10 MG/2 ML SDV IVPUSH SCH ×4 (03:10→21:54)
[2017-12-09] MEDS: Magnesium Sulfate/Water 2 GM in Premix Bag 1 BAG IV SCH (03:10)
[2017-12-09] MEDS: oxyCODONE 5 MG Tab PO PRN ×2 (05:38→21:51)
[2017-12-09] MEDS: Pantoprazole 40 MG Tab.CR PO SCH (07:56)
[2017-12-09] MEDS ORDERED: Central Total Parenteral Nutrition Bag SCH (08:00)
--- NOTE | 2017-12-09 08:54 | OR ---
DATE OF PROCEDURE: 12/04/2017 PREOPERATIVE DIAGNOSIS: Dysfunctional gastrostomy tube placement. OPERATIVE PROCEDURE: Replacement of gastrostomy tube by means of percutaneous endoscopic approach (45209). ANESTHESIA: Local plus IV sedation. INDICATIONS FOR PROCEDURE: Please see progress note dated earlier today. DETAILS OF PROCEDURE: The patient was taken to the operating room and initially placed in the left lateral decubitus position. IV sedation was administered, after which the upper GI endoscope was passed orally through the length of esophagus into the stomach. There was only a small amount of fluid present within the stomach, but we did this initially to make sure that we were not having risk for aspiration if the NG tube had not adequately evacuated the stomach. With this, the gastroscope remained in place. The patient was then placed in a supine position with head raised somewhat. The gastrostomy tube was then easily visualized at this point, and a guidewire and the percutaneous endoscopic gastrostomy tube system was then placed through the lumen of the existing gastrostomy tube. This was grasped with a biopsy forceps and then pulled back down through the mouth and out of the mouth. The pre-existing gastrostomy tube was then deflated, and with the guidewire, I passed the new percutaneous gastrostomy tube. This was pulled downward, and the gastrostomy tube and pyloric catheter tube were then sequentially pulled through the abdominal wall with the new gastrostomy tube being pulled up snugly against the abdominal wall. This was affixed in position with the fixation ring, as well as some 2-0 nylon stitch around the new gastrostomy site that had been anesthetized with 1% lidocaine. The endoscope was passed once again into the stomach, which confirmed adequate placement of the new gastrostomy tube, and scope was withdrawn. The patient was taken to the recovery room in satisfactory condition. Toni Peterson MD /[id number]
--- NOTE | 2017-12-09 08:57 | CR ---
Abdomen 2V AP Flat Upright HISTORY: Abdominal volvulus COMPARISON: Plain films 12/01/2017 FINDINGS: G-tube present. The NG tube has been removed. There remains gas filled small and large pierre l diffusely likely representing ileus. Lack of gas at the level of the rectum. Surgical clips in the left and right abdomen. Impression: Probable ileus. Very distal colonic obstructive process not entirely excluded. Recommend plain film f ollow-up based on clinical symptomology.
[2017-12-09] MEDS: metroNIDAZOLE/Normal Saline 500 MG in Premix Bag 1 BAG IV SCH ×2 (09:00→16:06)
[2017-12-09] MEDS: Nicotine 21 MG/24 Hr Patch TRDERM SCH (09:12)
[2017-12-09] MEDS: VERIFY SCOP PATCH TOP SCH (09:15)
--- NOTE | 2017-12-09 09:53 | PN ---
DATE OF SERVICE: 12/09/2017 SUBJECTIVE: Jovany had her gastrostomy tube clamped yesterday. She received oral Flagyl along with a new start of a full liquid diet. She feels like the combination of those 2 things caused nausea, bloating, and increased amount of pain. Her gastrostomy tube was unclamped and left unclamped and symptoms did resolve. She did have 14 soft small bowel movements, which were recorded. REVIEW OF SYSTEMS: Remainder of review of systems negative for any pertinent positives or negatives. OBJECTIVE: GENERAL: Jovany Palomares is a pleasant 52-year-old female. She states she is feeling much better today. VITAL SIGNS: TPR 98.4, 89, 16. Blood pressure 118/70. HEENT: Negative. NECK: Supple. HEART: Regular rate and rhythm. LUNGS: Clear. ABDOMEN: Dressings dry and intact. Abdominal binder is on. Gastrostomy tube is currently clamped. EXTREMITIES: Without peripheral edema. ASSESSMENT: 1. Postoperative ileus, resolved. 2. TPN nutrition. 3. Delayed primary closure, 12/03/2017, for exploratory laparotomy with TAP block, release of volvulus, repair of internal hernia, placement of Interceed mesh, central vein catheter insertion, gastrostomy tube insertion, and proctoscopy. Date of operation, 12/01/2017. 4. Right subtotal colectomy, 11/23/2017. 5. Delayed primary closure, 11/25/2017. PLAN: 1. Continue same TPN rate and content. 2. IV Flagyl 500 mg q.8 hours. 3. Vancomycin 250 mg q.i.d. Hospital has only liquid available, so will be given through the gastrostomy tube. 4. Clamp gastrostomy tube 24 hours, unclamp p.r.n. any abdominal pain, bloating, or nausea/vomiting. 5. We will evaluate p.r.n. or in the a.m. Clary Jimenez PA-C /[id number]
[2017-12-09] MEDS: Vancomycin 250 MG/5 ML ML Oral Solution PO SCH ×3 (10:31→21:52)
[2017-12-09] MEDS: 1: AA 5%/Calcium/D15W/Lytes 1,000 ML with MVI, Adult with Vitamin K 10 ML, Chromium/Copp IV SCH ×3 (13:02)
[2017-12-09] MEDS: Cyclobenzaprine 10 MG Tab PO PRN (21:51)
[2017-12-10] MEDS: metroNIDAZOLE/Normal Saline 500 MG in Premix Bag 1 BAG IV SCH ×3 (00:36→16:06)
[2017-12-10] MEDS: Metoclopramide 10 MG/2 ML SDV IVPUSH SCH ×4 (04:38→21:37)
[2017-12-10] MEDS ORDERED: Sodium Chloride 0.9% 500 ML IV ONE (05:04)
[2017-12-10] MEDS: Vancomycin 250 MG/5 ML ML Oral Solution PO SCH ×4 (05:37→21:37)
[2017-12-10] MEDS: VERIFY SCOP PATCH TOP SCH (08:15)
[2017-12-10] MEDS ORDERED: Central Total Parenteral Nutrition Bag SCH (08:15)
[2017-12-10] MEDS: Nicotine 21 MG/24 Hr Patch TRDERM SCH (08:18)
[2017-12-10] MEDS: Pantoprazole 40 MG Tab.CR PO SCH (08:18)
--- NOTE | 2017-12-10 10:28 | PN ---
DATE OF SERVICE: 12/10/2017 SUBJECTIVE: Jovany was cleared from C. difficile restrictions. She tolerated a full liquid diet. Yesterday her oral intake was 1160. Output from her gastrostomy tube was 0. Pain is controlled and activity is good. REVIEW OF SYSTEMS: Remainder of review of systems negative for any pertinent positives and negatives. OBJECTIVE: GENERAL: Jovany Palomares is a pleasant 52-year-old female. She is alert and orientated. VITAL SIGNS: TPR is 97.9, 73, 16, blood pressure 123/76. HEENT: Negative. NECK: Supple. HEART: Regular rate and rhythm. LUNGS: Clear. ABDOMEN: Incisions look good. Gastrostomy tube in place. Abdominal binder is on. EXTREMITIES: Without peripheral edema. ASSESSMENT: 1. Postop ileus resolved. 2. TPN nutrition. 3. Delayed primary closure 12/03/2017. 4. Exploratory laparotomy with tap block, release of volvulus, repair of internal hernia, placement of Interceed mesh, central vein catheter insertion, gastrostomy tube insertion and prostatectomy. Date of operation 12/01/2017. 5. Right subtotal colectomy 11/23/2017. 6. Delayed primary closure 11/25/2017. PLAN: 1. Teach the patient how to give herself vancomycin through the gastrostomy tube q.i.d. 2. Low residue diet. 3. Continue same TPN rate and content. 4. We will evaluate p.r.n. or in a.m. Clary Jimenez PA-C /[id number]
[2017-12-10] MEDS: 1: AA 5%/Calcium/D15W/Lytes 1,000 ML with MVI, Adult with Vitamin K 10 ML, Chromium/Copp IV SCH ×3 (12:57)
[2017-12-11] MEDS: metroNIDAZOLE/Normal Saline 500 MG in Premix Bag 1 BAG IV SCH ×2 (01:08→07:29)
[2017-12-11] MEDS: Vancomycin 250 MG/5 ML ML Oral Solution PO SCH (05:54)
[2017-12-11] MEDS: Metoclopramide 10 MG/2 ML SDV IVPUSH SCH (05:58)
[2017-12-11] MEDS: Pantoprazole 40 MG Tab.CR PO SCH (07:30)
--- NOTE | 2017-12-11 09:29 | DISCH ---
ADMISSION DIAGNOSES: Abdominal pain, constipation, and cecal volvulus. DISCHARGE DIAGNOSES: Exploratory laparotomy with reduction of volvulus through internal hernia, subtotal colectomy, and placement of Interceed mesh to prevent adhesion formation between the viscera and the pelvic abdominal wall for cecal volvulus through congenital internal hernia and severe chronic constipation. Date of surgery, 11/23/2017. Delayed primary closure of open abdominal incision, date 11/25/2017. HISTORY: Jovany Palomares was admitted to the hospital on 11/22/2017 with clinical picture of cecal volvulus. After preoperative evaluation and discussion of possible risks and possible complications, she wished to proceed with surgical procedure. Her 1st surgical procedure was on 11/23/2017 with a delayed primary closure on 11/25/2017. 1. Insertion of left subclavian vein triple-lumen catheter. 2. Exploratory laparotomy with:. a. Release of small bowel volvulus and closure of internal hernia. b. Enterotomy for decompression of small bowel. c. Placement of tube gastrostomy. d. Placement of Interceed mesh that was placed in the small bowel from pelvic and abdominal wall to limit recurrent adhesive formation. 3. Flexible sigmoidoscopy. Date, 12/01/2017, Dr. Toni Peterson, surgeon. Jovany Palomares has had a persistent postoperative small bowel obstruction, status post recent subtotal colectomy. This has been refractory to conservative measurement including a nasogastric obstruction. After preoperative evaluation and discussion of possible risks and possible complications, she wished to proceed with surgical procedure. 1. Delayed primary closure, 12/03/2017. 2. Clostridium difficile infection. 3. TPN nutrition. HOSPITAL COURSE: Jovany was admitted to the hospital through the emergency room on 11/22/2017, with abdominal pain. She had her 1st surgery on 11/23/2017, with delayed primary closure. Her 2nd surgery was on 12/01/2017 after a postop ileus and partial small bowel obstruction, was refractory to conservative treatment with a delayed primary closure on 12/03/2017. Jovany was started out conservatively with sips of water. She was treated for C diff with Flagyl and vancomycin. A gastrostomy tube was put to drainage and gradually clamped and tolerated well. As she began to eat, her TPN therapy was tapered to a lower rate. Her activity gradually improved. Her diet was gradually progressed to a low residue diet. Her vital signs remained stable, her activity improved, pain was controlled, and she was able to be discharged to home without any complications on 12/11/2017. PHYSICAL EXAMINATION: GENERAL: Jovany Palomares is a pleasant 52-year-old female. VITAL SIGNS: TPR is 98.7, 87, 18. Blood pressure 125/70. HEENT: Negative. NECK: Supple. HEART: Regular rate and rhythm. LUNGS: Clear. ABDOMEN: [place] intact. Incision looks good. Gastrostomy tube in place. Skin around gastrostomy tube looks good. Gastrostomy tube is clamped. Abdominal binder has been on. EXTREMITIES: Without peripheral edema. DISPOSITION: Discharged to home. CONDITION: Stable and improving. FOLLOWUP: Followup appointment with Toni Peterson MD on 12/17/2017 at 11:00 a.m. DISCHARGE MEDICATIONS: 1. Tylenol 650 mg q.4 hours p.r.n. pain, #100. 2. Flexeril 10 mg q.6 hours p.r.n. muscle spasms, #30. 3. Oxycodone 5-10 mg q.4 hours p.r.n. pain, #40. 4. Vancomycin 250 mg/5 mL q.i.d. through gastrostomy tube using an oral syringe. DIET AFTER DISCHARGE: GI soft, low residue low-fiber diet. Drink 8-10 glasses of water a day. ACTIVITY: As tolerated. No lifting greater than 10 pounds for 6 weeks[address]riving, do not drive on narcotic pain medication. Shower/bathing, may shower. Notify provider if any fever, increased pain, nausea, or vomiting. Wound incision care, keep site clean and dry. Wear abdominal binder for 6 weeks and then as tolerated. SPECIAL INSTRUCTIONS: 1. Use incentive spirometer 10 times every hour while awake. 2. Open up gastrostomy tube if you would experience any nausea, vomiting, or bloating.
[2017-12-11] MEDS: VERIFY SCOP PATCH TOP SCH (09:43)
[2017-12-11 10:05] VITALS: BP 118/57
== END 2017-12-11 10:29 | disposition home or self-care (01) | DRG 221 ==
LOC: JP.ED 23:05 → JP.MS 11-23 01:49 → JP.2SS 11-30 11:59
PROVIDERS: ADMIT Internal Medicine; ATTEND Surgery
PROC: 0DBF0ZZ Excision of Right Large Intestine, Open Approach (ICD-10-PCS; principal; 2017-11-23)
PROC: 0WQF0ZZ Repair Abdominal Wall, Open Approach (ICD-10-PCS; 2017-11-23)
PROC: 3E0M05Z Introduction of Adhesion Barrier into Peritoneal Cavity, Open Approach (ICD-10-PCS; 2017-11-23)
PROC: 0WQF0ZZ Repair Abdominal Wall, Open Approach (ICD-10-PCS; 2017-11-25)
PROC: 3E0T3BZ Introduction of Anesthetic Agent into Peripheral Nerves and Plexi, Percutaneous Approach (ICD-10-PCS; 2017-11-25)
PROC: 05H633Z Insertion of Infusion Device into Left Subclavian Vein, Percutaneous Approach (ICD-10-PCS; 2017-12-01)
PROC: 0D988ZZ Drainage of Small Intestine, Via Natural or Artificial Opening Endoscopic (ICD-10-PCS; 2017-12-01)
PROC: 0DSB0ZZ Reposition Ileum, Open Approach (ICD-10-PCS; 2017-12-01)
PROC: 0DSP0ZZ Reposition Rectum, Open Approach (ICD-10-PCS; 2017-12-01)
PROC: 0DH60UZ Insertion of Feeding Device into Stomach, Open Approach (ICD-10-PCS; 2017-12-01)
PROC: 3E0M05Z Introduction of Adhesion Barrier into Peritoneal Cavity, Open Approach (ICD-10-PCS; 2017-12-01)
PROC: 0DJD8ZZ Inspection of Lower Intestinal Tract, Via Natural or Artificial Opening Endoscopic (ICD-10-PCS; 2017-12-01)
PROC: 3E0T3BZ Introduction of Anesthetic Agent into Peripheral Nerves and Plexi, Percutaneous Approach (ICD-10-PCS; 2017-12-01)
PROC: 0WQF0ZZ Repair Abdominal Wall, Open Approach (ICD-10-PCS; 2017-12-03)
PROC: 0DH64UZ Insertion of Feeding Device into Stomach, Percutaneous Endoscopic Approach (ICD-10-PCS; 2017-12-04)
DX: K56.2 Volvulus (principal); K59.09 Other constipation; K45.0 Other specified abdominal hernia with obstruction, without gangrene; Z48.1 Encounter for planned postprocedural wound closure; A04.72 Enterocolitis due to Clostridium difficile, not specified as recurrent; K56.7 Ileus, unspecified; R33.9 Retention of urine, unspecified; K91.30 Postprocedural intestinal obstruction, unspecified as to partial versus complete; K62.5 Hemorrhage of anus and rectum; K94.23 Gastrostomy malfunction; E87.6 Hypokalemia; E83.42 Hypomagnesemia; F17.210 Nicotine dependence, cigarettes, uncomplicated; Z85.41 Personal history of malignant neoplasm of cervix uteri
CPT/HCPCS: 36415; 71045; 71045-26; 74000; 74000-26; 74019; 74019-26; 74020; 74020-26; 74177; 80048; 80053; 82607; 82728; 83735; 84100; 85025; 85027; 86850; 86900; 86901; 86920; 86922; 87493; 88307; 94762; 96361; 96374; 96375; 99285-25; A9270-GY; C9113; J0131; J0171; J0330; J0694; J1100; J1170; J1200; J1642; J1756; J2060; J2175; J2185; J2250; J2405; J2704; J2710; J2765; J2795; J3010; J3370; J3410; J3475; J3490; J7030; J7040; J7042; J7050; J7120; P9047; Q9965; Q9967